=== PATIENT | male | born 1960 | race Caucasian/White ===

== ENCOUNTER 2020-09-01 09:58 | Outpatient (REF) | payer BC, SELFPAY ==
[2020-09-01 11:23] LABS: Alanine Aminotransferase 15 U/L (0-40); Albumin Level 4.4 g/dL (3.5-5.0); Alkaline Phosphatase 107 U/L (39-117); Anion Gap 13 (12-20); Aspartate Amino Transferase 18 U/L (5-37); Bilirubin Total 0.5 mg/dL (0.0-1.0); Blood Urea Nitrogen 17 mg/dL (9-16); Calcium 9.3 mg/dL (8.4-10.2); Carbon Dioxide 25 mmol/L (22-29); Chloride 104 mmol/L (96-108); Cholesterol 169 mg/dL; Estimated Glomerular Filt Rate > 60; Glucose Fasting 97 mg/dL (60-99); HDL Cholesterol 62 mg/dL; LDL Cholesterol Calculated 96 mg/dl; Potassium 4.4 mmol/l (3.3-5.1); Prostate Specific Antigen 2.14 ng/mL (<0.05-4.0); Sodium 138 mmol/L (135-145); TSH reflex Free T4 1.45 mIU/mL (0.32-4.0); Total Protein 7.3 g/dL (6.5-8.0); Triglycerides 56 mg/dL
[2020-09-01 12:14] LABS: Creatinine Urine 248.73 mg/dL; Microalbum/Creatinine Ratio Ur 8.4 ug/mg cr
== END 2020-09-01 09:59 | disposition home or self-care (01) ==
LOC: HO.LAB 09:58
PROVIDERS: PCP Family Medicine; Visit Provider Family Medicine
DX: Z00.00 Encounter for general adult medical examination without abnormal findings (principal); I10 Essential (primary) hypertension; E78.00 Pure hypercholesterolemia, unspecified; Z12.5 Encounter for screening for malignant neoplasm of prostate
CPT/HCPCS: 80053; 80061; 82043; 84153; 84443

== ENCOUNTER 2021-01-02 15:59 | Outpatient (REF) | payer BC, SELFPAY ==
[2021-01-02 18:13] LABS: MANUAL DIFF FLAG NO
[2021-01-02 18:24] LABS: Basophils Absolute Auto 0.1 X10*3/uL (0.0-0.2); Basophils Percent Auto 0.7 % (0-2); Eosinophils Absolute Auto 0.2 X10*3/uL (0.0-0.4); Eosinophils Percent Auto 2.6 % (0-4); Hematocrit 42.1 % (42-52); Hemoglobin 14.3 g/dl (14.0-18.0); Imm Gran Abs Auto 0.02 X10*3/uL (0.00-0.03); Imm Gran Pct Auto 0.3 % (0.0-0.4); Lymphocytes Absolute Auto 2.4 X10*3/uL (1.2-4.9); Lymphocytes Percent Auto 32.7 % (20-40); Mean Corpuscular Hemoglobin 30.8 pg (27.0-33.0); Mean Corpuscular Volume 90.5 fL (80-98); Mean Platelet Volume 9.8 fL (9.4-12.4); Monocytes Absolute Auto 0.5 X10*3/uL (0.1-1.2); Monocytes Percent Auto 7.2 % (2-11); Neutrophils Absolute Auto 4.1 X10*3/uL (2.0-8.3); Neutrophils Percent Auto 56.5 % (45-73); Platelet Count 272 X10*3/uL (160-400); Red Blood Count 4.65 X10*6/uL (4.60-5.80); Red Cell Distribution Width 13.4 % (11.0-16.0); White Blood Count 7.3 X10*3/uL (4.8-10.8)
[2021-01-02 18:37] LABS: Alanine Aminotransferase 20 U/L (0-40); Albumin Level 4.3 g/dL (3.5-5.0); Alkaline Phosphatase 88 U/L (39-117); Amylase 52 U/L (28-100); Anion Gap 12 (12-20); Aspartate Amino Transferase 26 U/L (5-37); Bilirubin Total 0.7 mg/dL (0.0-1.0); Blood Urea Nitrogen 24 mg/dL (9-16); Calcium 9.2 mg/dL (8.4-10.2); Carbon Dioxide 28 mmol/L (22-29); Chloride 105 mmol/L (96-108); Estimated Glomerular Filt Rate > 60; Glucose Random 82 mg/dL (60-115); Lipase 26 U/L (8-78); Potassium 4.4 mmol/L (3.3-5.1); Sodium 141 mmol/L (135-145); Total Protein 7.1 g/dL (6.5-8.0)
== END 2021-01-02 16:00 | disposition home or self-care (01) ==
LOC: HO.LAB 15:59
PROVIDERS: Absent Provider Family Medicine; PCP Family Medicine; Visit Provider Nurse Practitioner
DX: R10.13 Epigastric pain (principal); K21.9 Gastro-esophageal reflux disease without esophagitis; Z79.899 Other long term (current) drug therapy
CPT/HCPCS: 36415; 80053; 82150; 83690; 85025

== ENCOUNTER 2021-01-05 18:17 | Outpatient (REF) | payer BC, SELFPAY | END 2021-01-05 18:18 | disposition home or self-care (01) | LOC: HO.LNP 18:17 | PROVIDERS: Visit Provider Nurse Practitioner | DX: R10.13 Epigastric pain (principal); K21.9 Gastro-esophageal reflux disease without esophagitis | CPT/HCPCS: 87338 ==

== ENCOUNTER 2021-01-19 09:13 | Outpatient (REF) | payer BC, SELFPAY ==
--- NOTE | ~2021-01-19 | US_ITS ---
EXAMINATION: US ABDOMEN COMPLETE CLINICAL INFORMATION: GERD. Epigastric pain. COMPARISON: None TECHNIQUE: Real-time imaging of the abdominal viscera. FINDINGS: PANCREAS: The visualized head and body of the pancreas appears unremarkable. Remainder of the pancreas is obscured by bowel gas. ABDOMINAL AORTA: The proximal, mid, and distal segments are normal in caliber. INFERIOR VENA CAVA: Visualized portions are normal. LIVER: Normal. The liver is normal in size. The liver contour is normal. Parenchymal echogenicity is normal. No focal hepatic lesion. There is no intrahepatic biliary duct dilatation seen. GALLBLADDER: Normal. The gallbladder is physiologically distended without evidence of stones, sludge, polyps, wall thickening or pericholecystic fluid. COMMON BILE DUCT: Normal in caliber measuring 0.5 cm in diameter. RIGHT KIDNEY: Normal. No hydronephrosis. No renal calculi or focal parenchymal lesions. The kidney measures 11.2 cm in maximum dimension. LEFT KIDNEY: Normal. No hydronephrosis. No renal calculi or focal parenchymal lesions. The kidney measures 11.7 cm in maximum dimension. SPLEEN: Normal. The spleen measures 9.8 cm in maximum dimension. FREE FLUID: None. US/US abdomen complete IMPRESSION: Unremarkable abdominal ultrasound.
== END 2021-01-19 09:14 | disposition home or self-care (01) ==
LOC: HO.HMGCX 09:13
PROVIDERS: PCP Family Medicine; Visit Provider Nurse Practitioner
DX: K21.9 Gastro-esophageal reflux disease without esophagitis (principal); R10.13 Epigastric pain
CPT/HCPCS: 76700

== ENCOUNTER → 2021-01-25 15:25 | Outpatient (BNVA) | payer BC, SELFPAY | PROVIDERS: PCP Family Medicine; Visit Provider Nurse Practitioner ==

== ENCOUNTER 2021-02-22 09:03 | Day surgery (SDC) | payer BC, SELFPAY ==
[2021-02-15 12:32] VITALS: BMI 27.6
--- NOTE | 2021-02-20 14:40 | HO.ANESPROP2 ---
HPI - Anesthesia Eval Consult details Narrative: 60yo M for Upper Endoscopy Eliquis for afib [facility] Active Problems Active Problems: All Active Problems (Updated 02/15/21 @ 12:42 by Christiana Clark) Aftercare following left hip joint replacement surgery (Acute) Osteoarthritis of left hip (Acute) Chronic GERD (Acute) Gastritis (Acute) Essential hypertension (Acute) History of [place] (myocardial infarction) (Acute) History of CVA (cerebrovascular accident) (Acute) Epigastric pain (Acute) Past Medical History Medical History CAD (coronary artery disease) COVID-19 vaccine series completed CVA (cerebral vascular accident) GERD (gastroesophageal reflux disease) HTN (hypertension) Myocardial infarction On anticoagulant therapy On beta nettie at home Family History Family History Father CAD (coronary artery disease) Brother No problems noted. Brother No problems noted. Sister No problems noted. Sister No problems noted. Son No problems noted. Daughter No problems noted. Surgical History Surgical History History of hip surgery Hx of arthroscopy of left knee Hx of colonoscopy Hx of inguinal hernia repair S/P triple vessel bypass Social History Social History (Updated 01/25/21 @ 15:27 by Ana Payton [facility]) Household Members: Spouse Are you a primary child care specialist to a significant other at home: No Do you presently have visiting nurse or other home services: No Alcohol intake: current Alcohol intake frequency: a few times a week Patient Tobacco Use Status: Never used Tobacco Current occupational status: employed Current occupation: [employer] Meds Allergies Allergy/AdvReac Type Severity Reaction Status Date / Time No Known Allergies Allergy Verified 02/22/21 09:22 [No Known Allergies*] Home Medications Medication Instructions Recorded Confirmed Last Taken Type aspirin 81 mg tablet,delayed 81 mg PO DAILY 07/28/20 02/15/21 02/22/21 08:30 History release Exam Exam Date and Time: February 20, 2021 1440 Height,Weight and Vital Signs: Height 5 ft 7 in Weight 79.832 kg Pertinent Lab Results Pertinent Lab Results: Laboratory Tests 01/02/21 01/02/21 17:00 17:00 WBC 7.3 Hgb 14.3 Hct 42.1 Plt Count 272 Sodium 141 Potassium 4.4 Chloride 105 Carbon Dioxide 28 BUN 24 H Creatinine 0.78 Narrative Narrative: ECHO Nml LV size, wall thickness and systolic function Paradoxical septal motion c/w post-op status LVEF 55-60% Mild TR Pulm artery sytolic pressure not elevated Mild transverse aorta dialtion (3.1cm) EKG 2020 SB @ 53 with occ PVC Assessment and Plan Assessment Anesthesia Assessment: Chart Reviewed
--- NOTE | 2021-02-22 09:23 | MHC.SHP ---
Pre-Procedural Eval Section B Chief Complaint: Epigastric Pain Relevant Family History (Specify if Yes): No Relevant Social History: None Present Medications: see Short Stay Collaborative assessment Medical History: Significant History (CAD (coronary artery disease) COVID-19 vaccine series completed CVA (cerebral vascular accident) GERD (gastroesophageal reflux disease) HTN (hypertension) Myocardial infarction On anticoagulant therapy On beta nettie at home) History of Previous Operations: Relevant previous surgery/procedure and date(s) (History of hip surgery Hx of arthroscopy of left knee Hx of colonoscopy Hx of inguinal hernia repair S/P triple vessel bypass) Allergies: Allergies Allergy/AdvReac Type Severity Reaction Status Date / Time No Known Allergies Allergy Verified 02/22/21 09:22 [No Known Allergies*] Review of Systems Sugical H&P ROS: Negative: Constitution, Cardiovascular, Respiratory, Neurological, Psychiatric, Hem-Onc, Allergic/Immunologic, Gastrointestinal, Genitourinary, Musculoskeletal, Integumentary, Endocrine and Eyes/Ears/Nose/Throat Exam Surgical H&P Exam: Normal: HEENT, Normal: Heart, Normal: Lungs, Normal: Extremities, Normal: Abdomen, Normal: Skin and Normal: Neurological Plan Diagnosis/Plan: Unchanged I have reviewed the history and physical and performed a pertinent physical examination on my patient. No changes have occurred unless specified.
[2021-02-22 09:27] VITALS: BP 131/91; PULSE 53; RESP 18; TEMP 36.1; O2SAT 97
[2021-02-22] MEDS: Lactated Ringers 1,000 ML 100 ML IVCONT (09:42)
--- NOTE | 2021-02-22 10:18 | PM.OP ---
Brief Operative Note Date of Service: 02/22/21 Pre-op diagnosis: epigastric pain Post-op diagnosis: same Procedure: see op note Surgeon: Farzana Fatima MD Anesthesia: MAC Was an Programming Coordinator used for this Procedure?: No Estimated blood loss (mL): 0 Condition: stable Disposition: PACU
--- NOTE | 2021-02-22 10:19 | W.PM.OPN ---
Operative Note Operative Note Date of Service: 02/22/21 Narrative: Procedure Description: EGD FLEXIBLE TRANSORAL UPPER GASTROINTESTINAL ENDOSCOPY UPPER ENDOSCOPY Consent: Indications for the procedure and potential complications of bleeding, perforation, reaction to medications and missed diagnosis were discussed with the patient and informed consent was obtained. Instrument: Olympus GIF H 190 J mid size upper endoscope Monitoring: Vital signs and clinical assessment, continuous EKG monitoring, Pulse oximetry, Carbon Dioxide monitoring and blood pressure monitoring were done throughout the procedure. Procedure: The patient was placed in the left lateral decubitis position and pre-procedure medications were administered and a bite block was placed. The endoscope was inserted into the mouth and advanced under direct vision to the third part of duodenum. A careful inspection was made as the upper endoscope was withdrawn including a retroflexed examination of the proximal stomach; Findings and interventions are described below. Findings: Larynx:normal Esophagus: GE junction at 40 cm, diaphragm hiatus at 40 cm, irregular z line with few islands of salmon pink tissue compatible with short segment barretts mucosa, bx taken Stomach: Patchy gastric erythema. Biopsies were obtained. Grade 2 flap valve on retroflexed examination of the cardia. Duodenum: Normal bulb and descending duodenum, bx taken Intervention: Biopsies as noted above Impression/Findings: barretts by endoscopic examination gastritis PLAN: cont with PPI, maybe change preparation to pantoprazole if ongoing sx repeat EGD in 3-5 yrs for surveillance or earlier if clinically indicated
[2021-02-22 10:34] VITALS: BP 101/67; PULSE 57; RESP 12; TEMP 36.6; O2SAT 96
[2021-02-22 10:49] VITALS: BP 106/73; PULSE 55; RESP 16; O2SAT 96
== END 2021-02-22 11:25 | disposition home or self-care (01) ==
PROVIDERS: PCP Family Medicine; Visit Provider Internal Medicine Gastroenterology
PROC: 0DJ08ZZ Inspection of Upper Intestinal Tract, Via Natural or Artificial Opening Endoscopic (ICD-10-PCS; CPT 43235; principal; 2021-02-22 10:20)
DX: K29.50 Unspecified chronic gastritis without bleeding (principal); K22.70 Barrett's esophagus without dysplasia; K44.9 Diaphragmatic hernia without obstruction or gangrene; K21.9 Gastro-esophageal reflux disease without esophagitis; I10 Essential (primary) hypertension; I25.2 Old myocardial infarction; Z86.73 Personal history of transient ischemic attack (TIA), and cerebral infarction without residual deficits; Z79.01 Long term (current) use of anticoagulants; Z79.899 Other long term (current) drug therapy
CPT/HCPCS: 43239; 88305; 88342

== ENCOUNTER → 2021-03-20 14:12 | Outpatient (BNVA) | payer BC, SELFPAY | PROVIDERS: Visit Provider Nurse Practitioner ==

== ENCOUNTER 2021-08-18 08:05 | Outpatient (REF) | payer BC, SELFPAY ==
[2021-08-18 10:12] LABS: Alanine Aminotransferase 27 U/L (0-40); Albumin Level 4.3 g/dL (3.5-5.0); Alkaline Phosphatase 72 U/L (39-117); Anion Gap 14 (12-20); Aspartate Amino Transferase 28 U/L (5-37); Bilirubin Total 0.8 mg/dL (0.0-1.0); Blood Urea Nitrogen 19 mg/dL (9-16); Calcium 9.5 mg/dL (8.4-10.2); Carbon Dioxide 27 mmol/L (22-29); Chloride 105 mmol/L (96-108); Cholesterol 206 mg/dL; Estimated Glomerular Filt Rate > 60; Glucose Fasting 103 mg/dL (60-99); HDL Cholesterol 70 mg/dL; LDL Cholesterol Calculated 118 mg/dl; Potassium 4.9 mmol/L (3.3-5.1); Sodium 141 mmol/L (135-145); Total Protein 7.1 g/dL (6.5-8.0); Triglycerides 90 mg/dL
[2021-08-18 10:14] LABS: Prostate Specific Antigen Scr 1.07 ng/mL (<0.05-4.0); TSH reflex Free T4 1.45 uIU/mL (0.32-4.0)
== END 2021-08-18 08:06 | disposition home or self-care (01) ==
LOC: HO.LAB 08:05
PROVIDERS: PCP Family Medicine; Visit Provider Family Medicine
DX: Z00.00 Encounter for general adult medical examination without abnormal findings (principal); Z12.5 Encounter for screening for malignant neoplasm of prostate; I25.2 Old myocardial infarction; K21.9 Gastro-esophageal reflux disease without esophagitis
CPT/HCPCS: 36415; 80053; 80061; 84153; 84443

== ENCOUNTER 2021-08-27 08:42 | Day surgery (SDC) | payer BC, SELFPAY ==
[2021-08-21 10:45] VITALS: BMI 28.9
[2021-08-21 12:57] VITALS: BMI 28.9
--- NOTE | 2021-08-24 10:48 | HO.ANESPROP2 ---
Documented by User: Kayla Mcginnis NP 08/24/21 10:53 HPI - Anesthesia Eval Consult details Narrative: 61yo M for Colonoscopy with antibiotics Cardiac cleared s/p EGD 02/2021 with JAY Singleton for h/o stroke PMF[facility] Active Problems Active Problems: All Active Problems (Updated 08/21/21 @ 12:57 by Daphne Jones, RN) Aftercare following left hip joint replacement surgery (Acute) Osteoarthritis of left hip (Acute) Chronic GERD (Acute) Gastritis (Acute) Essential hypertension (Acute) History of [place] (myocardial infarction) (Acute) History of CVA (cerebrovascular accident) (Acute) Epigastric pain (Acute) Abdominal bloating (Acute) Annual visit for general adult medical examination without abnormal findings (Acute) Screening for prostate cancer (Acute) Screening for colon cancer (Acute) Hyperlipidemia (Acute) Past Medical History Medical History (Updated 08/21/21 @ 12:57 by Daphne Jones, RN) CAD (coronary artery disease) COVID-19 vaccine series completed CVA (cerebral vascular accident) Elevated cholesterol GERD (gastroesophageal reflux disease) HTN (hypertension) Myocardial infarction On anticoagulant therapy On beta nettie at home Family History Family History Father CAD (coronary artery disease) Brother No problems noted. Brother No problems noted. Sister No problems noted. Sister No problems noted. Son No problems noted. Daughter No problems noted. Surgical History Surgical History History of esophagogastroduodenoscopy (EGD) History of hip surgery Hx of arthroscopy of left knee Hx of colonoscopy Hx of inguinal hernia repair S/P triple vessel bypass Social History Social History Household Members: Spouse Are you a primary interior plant caretaker to a significant other at home: No Do you presently have visiting nurse or other home services: No Alcohol intake: current Alcohol intake frequency: holidays/special occasions only Patient Tobacco Use Status: Never used Tobacco Are you DNR?: No Advance Directives: No Advance Directives Information Provided: Yes Advance Directives on File: No Current occupational status: employed Current occupation: [employer] Meds Allergies Allergy/AdvReac Type Severity Reaction Status Date / Time No Known Allergies Allergy Verified 08/21/21 12:53 [No Known Allergies*] Home Medications Medication Instructions Recorded Confirmed Last Taken Type aspirin 81 mg tablet,delayed 81 mg PO DAILY 07/28/20 08/21/21 08/26/21 History release (Adult Aspirin Regimen) Exam Exam Date and Time: August 24, 2021 1048 Height,Weight and Vital Signs: Height 5 ft 6.5 in Weight 82.554 kg Pertinent Lab Results Pertinent Lab Results: Laboratory Tests 01/02/21 08/18/21 17:00 08:15 WBC 7.3 Hgb 14.3 Hct 42.1 Plt Count 272 Sodium 141 Potassium 4.9 Chloride 105 Carbon Dioxide 27 BUN 19 H Creatinine 0.82 Narrative Narrative: ECHO 2019 Nml LV size, wall thickness, systolic function. Paradoxical septal motion c/w postoperative status. LVEF 55-60% Mildly dilated LA Mild TR, PASP not elevated Mild transverse aorta dilation (3.1cm) No previous study for comparison Assessment and Plan Assessment Anesthesia Assessment: Chart Reviewed Documented by User: Augustin Bowen 08/27/21 12:04 HPI - Anesthesia Eval Consult details Narrative: 61yo M for Colonoscopy with antibiotics Cardiac cleared s/p EGD 02/2021 with MAC Eliquis for h/o stroke, also on BB , last dose in Am bradycardia , at baseline sp aCABG in 2018 . [facility] Past Medical History Medical History (Updated 08/21/21 @ 12:57 by Daphne Jones, RAMONA) CAD (coronary artery disease) COVID-19 vaccine series completed CVA (cerebral vascular accident) Elevated cholesterol GERD (gastroesophageal reflux disease) HTN (hypertension) Myocardial infarction On anticoagulant therapy On beta nettie at home Functional capacity: independent ambulation Family History Family History Father CAD (coronary artery disease) Brother No problems noted. Brother No problems noted. Sister No problems noted. Sister No problems noted. Son No problems noted. Daughter No problems noted. Family history of problems with anesthesia: No Surgical History Surgical History History of esophagogastroduodenoscopy (EGD) History of hip surgery Hx of arthroscopy of left knee Hx of colonoscopy Hx of inguinal hernia repair S/P triple vessel bypass History of Problems with Anesthesia: No Social History Social History Household Members: Spouse Are you a primary interior plant caretaker to a significant other at home: No Do you presently have visiting nurse or other home services: No Alcohol intake: current Alcohol intake frequency: holidays/special occasions only Patient Tobacco Use Status: Never used Tobacco Are you DNR?: No Advance Directives: No Advance Directives Information Provided: Yes Advance Directives on File: No Current occupational status: employed Current occupation: [employer] Allergies Allergy/AdvReac Type Severity Reaction Status Date / Time No Known Allergies Allergy Verified 08/21/21 12:53 [No Known Allergies*] Home Medications Medication Instructions Recorded Confirmed Last Taken Type aspirin 81 mg tablet,delayed 81 mg PO DAILY 07/28/20 08/21/21 08/26/21 History release (Adult Aspirin Regimen) Exam Airway Mallampati Class: I TM Dist: >3cm Neck ROM: Full Loose/Missing/Broken Teeth: No Heart: bradycardia Lungs: bl breath sounds Assessment and Plan Final Anesthetic Review Family History of Problems with Anesthesia: No History of Problems with Anesthesia: No NPO: Yes ASA Class: III Final Preanesthetic Review: Anes Risks/Benef Reviewed Patient Risk: Intermediate Procedure Risk: Intermediate Anesthetic Plan Anesthetic Plan: MAC: Disposition: Standard PACU
[2021-08-27 09:46] VITALS: BP 120/72; PULSE 45; RESP 16; TEMP 36.4; O2SAT 97
[2021-08-27] MEDS: Lactated Ringers 1,000 ML 50 ML IVCONT (09:59)
[2021-08-27] MEDS: Ampicillin Sodium 2 GM in 0.9 % Sodium Chloride 100 ML IV (09:59)
[2021-08-27] MEDS: Gentamicin Sulfate/NaCl 80 MG/100 ML PIGGYBACK 100 MG IV (10:55)
--- NOTE | 2021-08-27 12:30 | P.BOP_ITS ---
Brief Operative Note Date of Service: 08/27/21 Pre-op diagnosis: Screening Post-op diagnosis: other (Diverticulosis) Procedure: Colonoscopy to the cecum and TI Surgeon: Kenneth Zarate Anesthesia: MAC Was an Science Interpreter used for this Procedure?: No Estimated blood loss (mL): 0 Pathology: none sent Condition: stable Disposition: PACU
[2021-08-27 12:33] VITALS: BP 88/56; PULSE 47; RESP 13; TEMP 36.3; O2SAT 97
[2021-08-27 12:38] VITALS: BP 100/63; PULSE 40; RESP 16; O2SAT 94
--- NOTE | 2021-08-27 12:45 | OP_ITS ---
SURGEON: Kenneth Zarate MD INDICATIONS: The patient presents for evaluation of colorectal cancer screening and personal history of tubular adenoma of the colon. Full consent has been obtained from him for this, including risks of bleeding and perforation. PREOPERATIVE DIAGNOSIS: POSTOPERATIVE DIAGNOSIS: PROCEDURE PERFORMED: Colonoscopy to the cecum and terminal ileum. ESTIMATED BLOOD LOSS: COMPLICATIONS: ANESTHESIA: Monitored anesthesia care. ASSISTANTS: SPECIMENS: PREOPERATIVE DIAGNOSES: Personal history of tubular adenoma of the colon and colorectal cancer screening. POSTOPERATIVE DIAGNOSES: Personal history of tubular adenoma of the colon and colorectal cancer screening, diverticulosis and internal hemorrhoids. DESCRIPTION OF PROCEDURE: The patient was placed in the left lateral decubitus position. The digital rectal exam revealed no abnormalities. The Olympus video pediatric colonoscope was entered into the rectum and advanced easily to the cecum. Once in the cecum, I did identify normal-appearing cecal pouch with appendiceal orifice and a normal-appearing ileocecal valve. The terminal ileum was cannulated and appeared normal. The scope was withdrawn back in the colon. The entire cecum and ileocecal valve appeared normal. The scope was slowly withdrawn assessing all mucosal surfaces carefully. Preparation was excellent. I did not visualize any sign of polyps, colitis, nor angiodysplasia. There was a mild amount of sigmoid diverticulosis. In the rectum, scope was retroflexed visualizing internal hemorrhoids, but no other pathology. The rectal mucosa appeared normal. The scope was straightened out and withdrawn from the patient. He tolerated the procedure well and was returned to the recovery area in stable condition. IMPRESSION: 1. Mild sigmoid diverticulosis. 2. Small internal hemorrhoids. PLAN: Given his previous history of a tubular adenoma, I would recommend a followup colonoscopy in 5 years for further screening. He will otherwise see me on a p.r.n. basis. He was advised to resume his Eliquis and aspirin today. MD TIKI Katz/RICKIE / [phone]
[2021-08-27 12:53] VITALS: BP 105/68; PULSE 43; RESP 16; TEMP 36.6; O2SAT 95
[2021-08-27 13:02] VITALS: BP 111/71
== END 2021-08-27 13:54 | disposition home or self-care (01) ==
PROVIDERS: PCP Family Medicine; Visit Provider Internal Medicine
PROC: 0DJD8ZZ Inspection of Lower Intestinal Tract, Via Natural or Artificial Opening Endoscopic (ICD-10-PCS; CPT 45378; principal; 2021-08-27 10:20)
DX: Z12.11 Encounter for screening for malignant neoplasm of colon (principal); Z86.010 Personal history of colon polyps; K57.30 Diverticulosis of large intestine without perforation or abscess without bleeding; K64.8 Other hemorrhoids; I25.10 Atherosclerotic heart disease of native coronary artery without angina pectoris; Z95.1 Presence of aortocoronary bypass graft; I25.2 Old myocardial infarction; I48.91 Unspecified atrial fibrillation; I10 Essential (primary) hypertension; E78.5 Hyperlipidemia, unspecified; K21.9 Gastro-esophageal reflux disease without esophagitis; Z86.73 Personal history of transient ischemic attack (TIA), and cerebral infarction without residual deficits; Z79.82 Long term (current) use of aspirin; Z79.01 Long term (current) use of anticoagulants; Z79.02 Long term (current) use of antithrombotics/antiplatelets; Z79.899 Other long term (current) drug therapy
CPT/HCPCS: 45378; J0290; J1580

== ENCOUNTER 2022-01-02 10:42 | Outpatient (REF) | payer BC, SELFPAY ==
[2022-01-02 11:37] LABS: Influenza A PCR NEGATIVE (Negative); Influenza B PCR NEGATIVE (Negative); Resp Syncy Virus RNA Qual PCR NEGATIVE (Negative); SARS COV2 PCR INHOUSE POSITIVE (Negative)
== END 2022-01-02 10:43 | disposition home or self-care (01) ==
LOC: HO.LNP 10:42
PROVIDERS: Visit Provider Family Medicine
DX: B34.9 Viral infection, unspecified (principal); Z20.822 Contact with and (suspected) exposure to COVID-19
CPT/HCPCS: 0241U

== ENCOUNTER 2023-02-15 10:28 | Outpatient (REF) | payer BC, SELFPAY ==
[2023-02-15 10:43] LABS: MANUAL DIFF FLAG NO
[2023-02-15 10:48] LABS: Basophils Absolute Auto 0.1 X10*3/uL (0.0-0.2); Basophils Percent Auto 1.1 % (0-2); Eosinophils Absolute Auto 0.3 X10*3/uL (0.0-0.4); Hematocrit 44.2 % (42.0-52.0); Hemoglobin 15.2 g/dl (14.0-18.0); Imm Gran Abs Auto 0.01 X10*3/uL (0.00-0.03); Imm Gran Pct Auto 0.2 % (0.0-0.4); Lymphocytes Absolute Auto 2.1 X10*3/uL (1.2-4.9); Lymphocytes Percent Auto 38.5 % (20-40); Mean Corpuscular HGB Conc 34.4 g/dl (31.0-36.0); Mean Corpuscular Hemoglobin 31.5 pg (27.0-33.0); Mean Corpuscular Volume 91.5 fL (80.0-98.0); Mean Platelet Volume 9.7 fL (9.4-12.4); Monocytes Absolute Auto 0.4 X10*3/uL (0.1-1.2); Monocytes Percent Auto 6.7 % (2-11); Neutrophils Absolute Auto 2.6 x10*3/uL (2.0-8.3); Neutrophils Percent Auto 47.5 % (45-73); Platelet Count 242 X10*3/uL (160-400); Red Blood Count 4.83 X10*6/uL (4.60-5.80); Red Cell Distribution Width 12.9 % (11.0-16.0); White Blood Count 5.5 X10*3/uL (4.8-10.8)
[2023-02-15 11:12] LABS: Appearance Urine Clear; Color Urine Yellow; Glucose Urine UA Negative (Negative); Leukocyte Esterase Urine Negative (Negative); Nitrite Urine Negative (Negative); PH 6.5 (5.0-9.0); Specific Gravity - Urine 1.015 (1.005-1.025); Urine Blood Negative (Negative); Urine Ketones Negative (Negative); Urine Protein Negative (Neg-Trace)
[2023-02-15 11:26] LABS: Alanine Aminotransferase 34 U/L (0-40); Albumin Level 4.2 g/dL (3.5-5.0); Alkaline Phosphatase 72 U/L (39-117); Anion Gap 11 (12-20); Aspartate Amino Transferase 31 U/L (5-37); Bilirubin Total 0.8 mg/dL (0.0-1.0); Blood Urea Nitrogen 20 mg/dL (9-16); Calcium 9.4 mg/dL (8.4-10.2); Carbon Dioxide 26 mmol/L (22-29); Chloride 107 mmol/L (96-108); Cholesterol 205 mg/dL; Estimated Glomerular Filt Rate > 60; Glucose Fasting 99 mg/dL (60-99); HDL Cholesterol 63 mg/dL; LDL Cholesterol Calculated 129 mg/dl; Potassium 4.4 mmol/L (3.3-5.1); Sodium 140 mmol/L (135-145); Total Protein 7.1 g/dL (6.5-8.0); Triglycerides 69 mg/dL
[2023-02-15 11:43] LABS: Prostate Specific Antigen Scr 1.47 ng/mL (<0.05-4.0); TSH reflex Free T4 1.72 uIU/mL (0.32-4.0)
[2023-02-15 11:54] LABS: Creatinine Urine 54.48 mg/dL; Microalbumin Urine < 5.0 mg/L
== END 2023-02-15 10:29 | disposition home or self-care (01) ==
LOC: HO.LAB 10:28
PROVIDERS: PCP Family Medicine; Visit Provider Family Medicine
DX: Z00.00 Encounter for general adult medical examination without abnormal findings (principal); Z12.5 Encounter for screening for malignant neoplasm of prostate; I10 Essential (primary) hypertension
CPT/HCPCS: 36415; 80053; 80061; 81003; 82043; 84153; 84443; 85025

== ENCOUNTER 2023-03-26 06:04 | Outpatient (REF) | payer BC, SELFPAY ==
[2023-04-01 13:58] LABS: Testosterone, Free 132.4 pg/mL (35.0-155.0); Testosterone, Total 761 ng/dL (250-1100)
== END 2023-03-26 06:05 | disposition home or self-care (01) ==
LOC: HO.LAB 06:04
PROVIDERS: PCP Family Medicine; Visit Provider Urology
DX: N40.1 Benign prostatic hyperplasia with lower urinary tract symptoms (principal); Z12.5 Encounter for screening for malignant neoplasm of prostate
CPT/HCPCS: 36415; 84153; 84402; 84403

== ENCOUNTER 2023-05-28 14:28 | Outpatient (AMB) | payer BC, SELFPAY ==
[2023-05-28 14:33] VITALS: BP 122/72; PULSE 66; O2SAT 95; BMI 29.7
--- NOTE | 2023-05-28 14:33 | A.OFFPC_ITS ---
Vital Signs 05/28/23 14:33 Height 5 ft 7 in Weight 189 lb 6 oz BMI 29.7 BP 122/72 Blood Pressure Location Rt brachial Position Sitting Pulse 66 Pulse Source Pulse Oximeter Pulse Oximetry (%) 95 Oxygen Delivery Method Room Air Intake Visit Reasons: f/u hypertension and chronic conditions Intake Note: Patient is here to follow up on hypertension and chronic conditions. Allergies No Known Allergies [No Known Allergies*] Allergy (Verified 05/28/23 14:37) Tobacco use date assessed: 05/28/23 Dental Screening Did you have a dental visit in the last 12 months?: Yes Did you have a dental problem in the last 6 months where you did not have access to dental care?: No Was dental information given to patient?: Patient has dentist HPI f/u hypertension and chronic conditions HPI Details 62 y/o presents to f/u hypertension and chronic conditions. Blood pressure today 122/72. He is on metoprolol 25mg b.i.d. HPI Comments History of Present Illness Details Documentation assistance for Alexei Miranda MD, was provided by Bennie Abernathy,? Aeronautics Teacher on 05/28/2023 2:55 PM EST. I, Dr. Miranda, have read, observed, and verified documentation.? [facility] Medical History CAD (coronary artery disease) COVID-19 vaccine series completed CVA (cerebral vascular accident) Elevated cholesterol GERD (gastroesophageal reflux disease) HTN (hypertension) Myocardial infarction On anticoagulant therapy On beta nettie at home Surgical History History of esophagogastroduodenoscopy (EGD) History of hip surgery Hx of arthroscopy of left knee Hx of colonoscopy Hx of inguinal hernia repair S/P triple vessel bypass Family History Father CAD (coronary artery disease) Brother No problems noted. Brother No problems noted. Sister No problems noted. Sister No problems noted. Son No problems noted. Daughter No problems noted. Social History Household Members: Spouse Housing: House Are you a primary manager intensive care to a significant other at home: No Do you presently have visiting nurse or other home services: No Alcohol intake: current Alcohol intake frequency: holidays/special occasions only Patient Tobacco Use Status: Never used Tobacco e-Cigarette/Vaping Use: Never Used service: No Current occupational status: employed Current occupation: [employer] Cognitive needs: No Hearing needs: No Vision needs: No Questionnaire Thrive Questionnaire Date Thrive assessed: 02/19/23 CRISTHIAN-7 AMB Questionnaire CRISTHIAN-7 Date CRISTHIAN - 7 assessed: 02/19/23 Source: Developed by Drs. Kenneth Jeffrey, Tequila Renee, Blas Branch and colleagues, with an educational aicha from [employer]. Review of Systems Const Denies chills, Denies fatigue, Denies fever(s), Denies headache(s) and Denies we akness ENT Denies dizziness and Denies headache(s) Card Denies chest pain, Denies lightheadedness, Denies dyspnea and Denies other (Palpitations) Resp Denies cough, Denies dyspnea, Denies wheezing and Denies other ( shortness of breath) Musc Denies numbness and Denies tingling Neuro Denies dizziness, Denies headache(s), Denies numbness, Denies tingling, Denies paresthesias and Denies weakness Psych Denies anxiety and Denies depression Endo Denies fatigue Aller/Immun Denies wheezing Physical exam (Primary Care) Vital Signs: Last Vital Signs Pulse 66 05/28/23 14:33 BP 122/72 05/28/23 14:33 Pulse Ox 95 05/28/23 14:33 Oxygen Delivery Method Room Air 05/28/23 14:33 BMI result Body Mass Index 29.7 Tobacco/Smoking Status: Tobacco use Status Tobacco use date assessed 05/28/23 05/28/23 14:40 Patient Tobacco Use Status Never used Tobacco 05/28/23 14:36 e-Cigarette/Vaping Use Never Used 05/28/23 14:36 Thrive Assessment: Date of Thrive Assessment Date Thrive assessed 02/19/23 05/28/23 14:36 Const General: no acute distress and well developed Nutritional Appearance: well nourished Orientation/consciousness: patient oriented x3 HENMT Head: Yes normocephalic and Yes atraumatic Eyes General: appearance normal, both eyes and all related structures Pupils: Equal, round and reactive pupils present EOM: EOMs intact bilaterally Resp Effort & Inspection: normal respiratory effort Auscultation: clear to auscultation bilaterally Cardio Rate: regular rate Rhythm: regular rhythm Heart sounds: S1 normal heart sound present, S2 normal heart sound present, no gallops, no murmurs and no rubs Neuro General: patient oriented x3 and gait normal Cranial nerves: Yes Equal, round and reactive pupils present Psych Affect: normal affect Assessment and Plan Assessment & Plan (1) Essential hypertension: Code(s): I10 - Essential (primary) hypertension Plan: Blood pressure is controlled. Goal is less than 130/80 Continue current medication regimen (2) Hyperlipidemia: Code(s): E78.5 - Hyperlipidemia, unspecified Plan: LDL cholesterol 129 on atorvastatin 80 mg daily Had encouraged lifestyle changes He is exercising regular Will have him repeat lipids. If not significantly improved, we can discuss switching atorvastatin to Crestor and/or adding Zetia (3) CAD (coronary artery disease): Comment: Sees Dr. Andrea Flor [facility]- #[id number] Code(s): I25.10 - Atherosclerotic heart disease of [place] coronary artery without angina pectoris Plan: Stable Follow-up with Cardiology as recommended (4) History of CVA (cerebrovascular accident): Code(s): Z86.73 - Personal history of transient ischemic attack (TIA), and cerebral infarction without residual deficits Plan: Likely provoked but recommendation is to continue Eliquis lifelong Stable (5) Strain of left hamstring: Code(s): S76.312A - Strain of muscle, fascia and tendon of the posterior muscle group at thigh level, left thigh, initial encounter Plan: Recommend gentle stretching prior to exercise Orders: Orders Comprehensive [place]. Panel Fast Today E78.5 - Hyperlipidemia, unspecified, Z00.00 - Encounter for general adult medical examination without abnormal findings Lipid Panel Today E78.5 - Hyperlipidemia, unspecified, Z00.00 - Encounter for general adult medical examination without abnormal findings Coding Level of Care Code Est Pt Level 4 (78240) Diagnoses Essential hypertension I10 Hyperlipidemia E78.5 CAD (coronary artery disease) I25.10 History of CVA (cerebrovascular accident) Z86.73 Strain of left hamstring S76.312A
== END 2023-05-28 15:07 | disposition home or self-care (01) ==
PROVIDERS: PCP Family Medicine; Visit Provider Family Medicine
DX: I10 Essential (primary) hypertension (principal); E78.5 Hyperlipidemia, unspecified; I25.10 Atherosclerotic heart disease of native coronary artery without angina pectoris; Z86.73 Personal history of transient ischemic attack (TIA), and cerebral infarction without residual deficits; S76.312A Strain of muscle, fascia and tendon of the posterior muscle group at thigh level, left thigh, initial encounter
CPT/HCPCS: 99214

== ENCOUNTER 2023-06-21 07:02 | Outpatient (REF) | payer BC, SELFPAY ==
[2023-06-21 07:59] LABS: Alanine Aminotransferase 27 U/L (0-40); Albumin Level 4.3 g/dL (3.5-5.0); Alkaline Phosphatase 67 U/L (39-117); Anion Gap 17 (12-20); Aspartate Amino Transferase 29 U/L (5-37); Bilirubin Total 0.6 mg/dL (0.0-1.0); Blood Urea Nitrogen 17 mg/dL (9-16); Calcium 9.7 mg/dL (8.4-10.2); Carbon Dioxide 23 mmol/L (22-29); Chloride 107 mmol/L (96-108); Cholesterol 177 mg/dL (<200); Estimated Glomerular Filt Rate > 60; Glucose Fasting 102 mg/dL (60-99); HDL Cholesterol 60 mg/dL (>40); LDL Cholesterol Calculated 103 mg/dL (<100); Potassium 4.4 mmol/L (3.3-5.1); Sodium 143 mmol/L (135-145); Total Protein 7.2 g/dL (6.5-8.0); Triglycerides 70 mg/dL (<150)
[2023-06-21 08:21] LABS: Prostate Specific Antigen 1.57 ng/mL (<0.05-4.0)
== END 2023-06-21 07:03 | disposition home or self-care (01) ==
LOC: HO.LAB 07:02
PROVIDERS: Family Medicine; Visit Provider Physician Assistant
DX: Z00.00 Encounter for general adult medical examination without abnormal findings (principal); Z12.5 Encounter for screening for malignant neoplasm of prostate; R97.20 Elevated prostate specific antigen [PSA]; E78.5 Hyperlipidemia, unspecified
CPT/HCPCS: 36415; 80053; 80061; 84153

== ENCOUNTER 2023-07-02 16:24 | Outpatient (AMB) | payer BC, SELFPAY ==
--- NOTE | 2023-07-02 16:15 | A.OFFPC_ITS ---
Intake Visit Reasons: f/u labs Intake Note: Patient is following up on his blood work today. Allergies No Known Allergies [No Known Allergies*] Allergy (Verified 07/02/23 16:16) Tobacco use date assessed: 07/02/23 HPI f/u labs HPI Details 62 y/o male presents to f/u labs via tel emedicine. Labs were drawn 06/21/23. Reviewed labs with pt. Elevated fasting glucose of 102. Triglycerides 70. TC 177. LDL 103. HDL 60. He is on artovastatin 80mg daily. [facility] Medical History Elevated cholesterol COVID-19 vaccine series completed GERD (gastroesophageal reflux disease) CVA (cerebral vascular accident) On beta nettie at home On anticoagulant therapy Myocardial infarction CAD (coronary artery disease) HTN (hypertension) Surgical History History of esophagogastroduodenoscopy (EGD) Hx of arthroscopy of left knee Hx of colonoscopy Hx of inguinal hernia repair History of hip surgery S/P triple vessel bypass Family History Father CAD (coronary artery disease) Brother No problems noted. Brother No problems noted. Sister No problems noted. Sister No problems noted. Son No problems noted. Daughter No problems noted. Social History Household Members: Spouse Housing: House Are you a primary technical healthcare consultant to a significant other at home: No Do you presently have visiting nurse or other home services: No Alcohol intake: current Alcohol intake frequency: holidays/special occasions only Patient Tobacco Use Status: Never used Tobacco e-Cigarette/Vaping Use: Never Used service: No Current occupational status: employed Current occupation: [employer] Cognitive needs: No Hearing needs: No Vision needs: No Questionnaire Thrive Questionnaire Date Thrive assessed: 02/19/23 CRISTHIAN-7 AMB Questionnaire CRISTHIAN-7 Date CRISTHIAN - 7 assessed: 02/19/23 Source: Developed by Drs. Kenneth Jeffrey, Tequila Renee, Blas Branch and colleagues, with an educational aicha from [employer]. Review of Systems Const Denies chills, Denies fatigue, Denies fever(s), Denies headache(s) and Denies weakness ENT Denies dizziness and Denies headache(s) Card Denies dyspnea Resp Denies cough, Denies dyspnea, Denies wheezing and Denies other (shortness of breath) Musc Denies numbness and Denies tingling Neuro Denies dizziness, Denies headache(s), Denies numbness, Denies tingling and Denies weakness Psych Denies anxiety and Denies depression Endo Denies fatigue Aller/Immun Denies wheezing Physical exam (Primary Care) Tobacco/Smoking Status: Tobacco use Status Tobacco use date assessed 07/02/23 07/02/23 16:19 Patient Tobacco Use Status Never used Tobacco 07/02/23 16:19 e-Cigarette/Vaping Use Never Used 07/02/23 16:19 Thrive Assessment: Date of Thrive Assessment Date Thrive assessed 02/19/23 07/02/23 16:19 Telehealth Telehealth Location of provider rendering services: practice address Location of patient: address on file Patient Identification confirmed using: Name, : Yes Telehealth method: voice only Patient verbally consented to treatment: Yes Patient verbally consented to billing insurance company: Yes Minutes spent on Phone/Video with Pt.: 5 Assessment and Plan Assessment & Plan (1) Hyperlipidemia: Code(s): E78.5 - Hyperlipidemia, unspecified Plan: Patient?has?history?of?coronary?artery?disease?and?LDL?c holesterol?now?at?102?on?atorvastatin?80?mg?daily.??Goal?is?less?than?70 Will?switch?atorvastatin?to?rosuvastatin Continue?diet?low?in?saturated?fats?and?cholesterol (2) CAD (coronary artery disease): Comment: Sees Dr. Andrea Flor [facility] Card- #[id number] Code(s): I25.10 - Atherosclerotic heart disease of [place] coronary artery without angina pectoris Plan: Stable Medications: New rosuvastatin 40 mg PO DAILY 90 days 90 tabs 2RF Discontinued atorvastatin Discontinued Reason: Doctor's Order 80 mg PO DAILY 90 tabs 3RF Coding Level of Care Code Tele Est Pt Level 2 (50102) Diagnoses Hyperlipidemia E78.5 CAD (coronary artery disease) I25.10
== END 2023-07-02 17:00 | disposition home or self-care (01) ==
LOC: HO.HMGFM 16:24
PROVIDERS: PCP Family Medicine; Visit Provider Family Medicine
DX: E78.5 Hyperlipidemia, unspecified (principal); I25.10 Atherosclerotic heart disease of native coronary artery without angina pectoris
CPT/HCPCS: 99441

== ENCOUNTER 2023-09-02 16:22 | Outpatient (AMB) | payer BC, SELFPAY ==
[2023-09-02 16:29] VITALS: BP 122/78; PULSE 96; O2SAT 74; BMI 30.6
--- NOTE | 2023-09-02 16:29 | MHC.PC.OV ---
Vital Signs 09/02/23 16:29 Height 5 ft 7 in Weight 195 lb 8 oz BMI 30.6 BP 122/78 Blood Pressure Location Lt brachial Position Sitting Pulse 96 Pulse Source Pulse Oximeter Pulse Oximetry (%) 74 L Oxygen Delivery Method Room Air Intake Visit Reasons: f/u hyperlipidemia with coronary artery diseas Intake Note: Patient is here to follow up on hyperlipidemia and coronary artery disease. Allergies No Known Allergies [No Known Allergies*] Allergy (Verified 09/02/23 16:30) Tobacco use date assessed: 09/02/23 HPI f/u hyperlipidemia with coronary artery diseas HPI Details 63 y/o male presents to f/u HLD with CAD. Had changed artovastatin to Crestor. Labs did not seem to be done. 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 HPI Comments History of Present Illness Details Documentation assistance for Alexei Miranda MD, was provided by Bennie Abernathy, Health Sciences Department Chair on 09/02/2023 4:58 PM EST. I, Dr. Miranda, have read, observed, and verified documentation. [facility] Medical History Elevated cholesterol COVID-19 vaccine series completed GERD (gastroesophageal reflux disease) CVA (cerebral vascular accident) On beta nettie at home On anticoagulant therapy Myocardial infarction CAD (coronary artery disease) HTN (hypertension) Surgical History History of esophagogastroduodenoscopy (EGD) Hx of arthroscopy of left knee Hx of colonoscopy Hx of inguinal hernia repair History of hip surgery S/P triple vessel bypass Family History Father CAD (coronary artery disease) Brother No problems noted. Brother No problems noted. Sister No problems noted. Sister No problems noted. Son No problems noted. Daughter No problems noted. Social History Household Members: Spouse Housing: House Are you a primary medical care evaluation specialist to a significant other at home: No Do you presently have visiting nurse or other home services: No Alcohol intake: current Alcohol intake frequency: holidays/special occasions only Patient Tobacco Use Status: Never used Tobacco e-Cigarette/Vaping Use: Never Used service: No Current occupational status: employed Current occupation: [employer] Cognitive needs: No Hearing needs: No Vision needs: No Questionnaire Thrive Questionnaire Date Thrive assessed: 02/19/23 CRISTHIAN-7 AMB Questionnaire CRISTHIAN-7 Date CRISTHIAN - 7 assessed: 02/19/23 Source: Developed by Drs. Kenneth Jeffrey, Tequila Renee, Blas Branch and colleagues, with an educational aicha from [employer]. Review of Systems Const Denies chills, Denies fatigue, Denies fever(s), Denies headache(s) and Denies weakness ENT Denies dizziness and Denies headache(s) Card Denies dyspnea Resp Denies cough, Denies dyspnea, Denies wheezing and Denies other (shortness of breath) Musc Denies numbness and Denies tingling Neuro Denies dizziness, Denies headache(s), Denies numbness, Denies tingling and Denies weakness Psych Denies anxiety and Denies depression Endo Denies fatigue Aller/Immun Denies wheezing Physical exam (Primary Care) Vital Signs: Last Vital Signs Pulse 96 09/02/23 16:29 BP 122/78 09/02/23 16:29 Pulse Ox 74 L 09/02/23 16:29 Oxygen Delivery Method Room Air 09/02/23 16:29 BMI result Body Mass Index 30.6 Tobacco/Smoking Status: Tobacco use Status Tobacco use date assessed 09/02/23 09/02/23 16:38 Patient Tobacco Use Status Never used Tobacco 09/02/23 16:38 e-Cigarette/Vaping Use Never Used 09/02/23 16:38 Thrive Assessment: Date of Thrive Assessment Date Thrive assessed 02/19/23 09/02/23 16:38 Const General: well developed; No acute distress Nutritional Appearance: well nourished Orientation/consciousness: patient oriented x3 HENMT Head: Yes normocephalic and Yes atraumatic Eyes General: appearance normal, both eyes and all related structures Pupils: Equal, round and reactive pupils present EOM: EOMs intact bilaterally Resp Effort & Inspection: normal respiratory effort Neuro General: patient oriented x3 and gait normal Cranial nerves: Yes Equal, round and reactive pupils present Psych Affect: normal affect Assessment and Plan Assessment & Plan (1) Hyperlipidemia: Code(s): E78.5 - Hyperlipidemia, unspecified Plan: LDL?cholesterol?was?above?100.??Goal?is?less?than?70 He?had?been?started?on?rosuvastatin.??He?has?not?gotten?his?lipids?drawn?since?then He?will?get?his?labs?drawn?and?we?can?follow-up?in?about?2?weeks?by?telemedicine (2) CAD (coronary artery disease): Comment: Sees Dr. Andrea Flor [facility]- #[id number] Code(s): I25.10 - Atherosclerotic heart disease of [place] coronary artery without angina pectoris Plan: Stable.??Follow-up?with?Cardiology?as?recommended (3) Strain of left hamstring: Code(s): S76.312A - Strain of muscle, fascia and tendon of the posterior muscle group at thigh level, left thigh, initial encounter Plan: Encouraged?stretching?exercises (4) Arm pain: Code(s): M79.603 - Pain in arm, unspecified Plan: Likely?left?biceps?strain?and?partial?tear Encouraged?ice/heat.??Voltaren?gel Gentle?stretches?and?can?begin?exercising?when?improved. If?not?improving?will?refer?to?physical?therapy. Medications: New diclofenac sodium 1% (Voltaren Arthritis Pain) apply to single knee, ankle, foot; for foot includes sole/toes/top of foot 4 grams topical QID PRN 100 grams 1RF pain 30 days Coding Level of Care Code Est Pt Level 4 (00317) Diagnoses Hyperlipidemia E78.5 CAD (coronary artery disease) I25.10 Strain of left hamstring S76.312A Arm pain M79.603
== END 2023-09-02 17:20 | disposition home or self-care (01) ==
PROVIDERS: PCP Family Medicine; Visit Provider Family Medicine
DX: E78.5 Hyperlipidemia, unspecified (principal); I25.10 Atherosclerotic heart disease of native coronary artery without angina pectoris; S76.312A Strain of muscle, fascia and tendon of the posterior muscle group at thigh level, left thigh, initial encounter; M79.603 Pain in arm, unspecified
CPT/HCPCS: 99214

== ENCOUNTER 2023-09-06 07:35 | Outpatient (REF) | payer BC, SELFPAY ==
[2023-09-06 08:32] LABS: Cholesterol 172 mg/dL (<200); HDL Cholesterol 59 mg/dL (>40); LDL Cholesterol Calculated 99 mg/dL (<100); Triglycerides 73 mg/dL (<150)
== END 2023-09-06 07:36 | disposition home or self-care (01) ==
LOC: HO.LAB 07:35
PROVIDERS: Absent Provider Nurse Practitioner; PCP Family Medicine; Visit Provider Family Medicine
DX: I25.10 Atherosclerotic heart disease of native coronary artery without angina pectoris (principal)
CPT/HCPCS: 36415; 80061

== ENCOUNTER 2023-10-01 14:32 | Outpatient (AMB) | payer BC, SELFPAY ==
[2023-10-01 14:35] VITALS: BP 124/72; PULSE 59; O2SAT 95; BMI 30.9
--- NOTE | 2023-10-01 14:35 | MHC.PC.OV ---
Vital Signs 10/01/23 14:35 Height 5 ft 7 in Weight 197 lb BMI 30.9 BP 124/72 Blood Pressure Location Lt brachial Position Sitting Pulse 59 Pulse Source Pulse Oximeter Pulse Oximetry (%) 95 Oxygen Delivery Method Room Air Intake Visit Reasons: f/u HLD Intake Note: Patient is here to follow up on cholesterol. Allergies No Known Allergies [No Known Allergies*] Allergy (Verified 10/01/23 14:36) Tobacco use date assessed: 09/02/23 Dental Screening Dental Screen Date: 10/01/23 Did you have a dental visit in the last 12 months?: Yes Did you have a dental problem in the last 6 months where you did not have access to dental care?: No Was dental information given to patient?: Patient has dentist HPI f/u HLD HPI Details 63 y/o male presents to f/u HLD. Lipid panel drawn 09/06/23. Reviewed labs with pt. Triglycerides 73. TC 172. LDL 99. HDL 59. He is on rosuvastatin 40mg daily. [facility] Medical History Elevated cholesterol COVID-19 vaccine series completed GERD (gastroesophageal reflux disease) CVA (cerebral vascular accident) On beta nettie at home On anticoagulant therapy Myocardial infarction CAD (coronary artery disease) HTN (hypertension) Surgical History History of esophagogastroduodenoscopy (EGD) Hx of arthroscopy of left knee Hx of colonoscopy Hx of inguinal hernia repair History of hip surgery S/P triple vessel bypass Family History Father CAD (coronary artery disease) Brother No problems noted. Brother No problems noted. Sister No problems noted. Sister No problems noted. Son No problems noted. Daughter No problems noted. Social History Household Members: Spouse Housing: House Are you a primary care management specialist to a significant other at home: No Do you presently have visiting nurse or other home services: No Alcohol intake: current Alcohol intake frequency: holidays/special occasions only Patient Tobacco Use Status: Never used Tobacco e-Cigarette/Vaping Use: Never Used service: No Current occupational status: employed Current occupation: [employer] Cognitive needs: No Hearing needs: No Vision needs: No Questionnaire Thrive Questionnaire Date Thrive assessed: 02/19/23 CRISTHIAN-7 AMB Questionnaire CRISTHIAN-7 Date CRISTHIAN - 7 assessed: 02/19/23 Source: Developed by Drs. Kenneth Jeffrey, Tequila Renee, Blas Branch and colleagues, with an educational aicha from [employer]. Review of Systems Const Denies chills, Denies fatigue, Denies fever(s), Denies headache(s) and Denies weakness ENT Denies dizziness and Denies headache(s) Card Denies chest pain, Denies lightheadedness, Denies dyspnea and Denies other (Palpitations) Resp Denies cough, Denies dyspnea, Denies wheezing and Denies other ( shortness of breath) Musc Denies numbness and Denies tingling Neuro Denies dizziness, Denies headache(s), Denies numbness, Denies tingling, Denies paresthesias and Denies weakness Psych Denies anxiety and Denies depression Endo Denies fatigue Aller/Immun Denies wheezing Physical exam (Primary Care) Vital Signs: Last Vital Signs Pulse 59 10/01/23 14:35 BP 124/72 10/01/23 14:35 Pulse Ox 95 10/01/23 14:35 Oxygen Delivery Method Room Air 10/01/23 14:35 BMI result Body Mass Index 30.9 Tobacco/Smoking Status: Tobacco use Status Tobacco use date assessed 09/02/23 10/01/23 14:38 Patient Tobacco Use Status Never used Tobacco 10/01/23 14:38 e-Cigarette/Vaping Use Never Used 10/01/23 14:38 Thrive Assessment: Date of Thrive Assessment Date Thrive assessed 02/19/23 10/01/23 14:38 Const General: no acute distress and well developed Nutritional Appearance: well nourished Orientation/consciousness: patient oriented x3 HENMT Head: Yes normocephalic and Yes atraumatic Eyes General: appearance normal, both eyes and all related structures Pupils: Equal, round and reactive pupils present EOM: EOMs intact bilaterally Resp Effort & Inspection: normal respiratory effort Auscultation: clear to auscultation bilaterally Cardio Rate: regular rate Rhythm: regular rhythm Heart sounds: S1 normal heart sound present, S2 normal heart sound present, no gallops, no murmurs and no rubs Neuro General: patient oriented x3 and gait normal Cranial nerves: Yes Equal, round and reactive pupils present Psych Affect: normal affect Assessment and Plan Assessment & Plan (1) Hyperlipidemia: Code(s): E78.5 - Hyperlipidemia, unspecified Plan: Only?modest?improvement?with?change?from?atorvastatin?to?Crestor?and?LDL?cholesterol?is?still?above?goal?of?less?than?70 Will?add?Zetia?and?continue?Crestor. Follow-up?in?3?months Orders: Orders Lipid Panel Today E78.5 - Hyperlipidemia, unspecified, Z00.00 - Encounter for general adult medical examination without abnormal findings Comprehensive [place]. Panel Fast Today E78.5 - Hyperlipidemia, unspecified, Z00.00 - Encounter for general adult medical examination without abnormal findings Hemoglobin A1c Today R73.01 - Impaired fasting glucose Medications: New ezetimibe (Zetia) 10 mg PO DAILY 30 tabs 2RF 30 days Coding Level of Care Code Est Pt Level 3 (04630) Diagnoses Hyperlipidemia E78.5
== END 2023-10-01 15:12 | disposition home or self-care (01) ==
PROVIDERS: PCP Family Medicine; Visit Provider Family Medicine
DX: E78.5 Hyperlipidemia, unspecified (principal)
CPT/HCPCS: 99213

== ENCOUNTER 2023-12-27 08:13 | Outpatient (REF) | payer BC, SELFPAY ==
[2023-12-27 09:45] LABS: Estimated Average Glucose 123 mg/dL; Hemoglobin A1c % 5.9 % (<6.0)
[2023-12-27 10:08] LABS: Alanine Aminotransferase 23 U/L (0-40); Albumin Level 4.2 g/dL (3.5-5.0); Alkaline Phosphatase 72 U/L (39-117); Anion Gap 10 (12-20); Aspartate Amino Transferase 26 U/L (5-37); Bilirubin Total 0.9 mg/dL (0.0-1.0); Blood Urea Nitrogen 17 mg/dL (9-16); Calcium 9.2 mg/dL (8.4-10.2); Carbon Dioxide 26 mmol/L (22-29); Chloride 106 mmol/L (96-108); Cholesterol 162 mg/dL (<200); Estimated Glomerular Filt Rate > 60; Glucose Fasting 98 mg/dL (60-99); HDL Cholesterol 58 mg/dL (>40); LDL Cholesterol Calculated 92 mg/dL (<100); Potassium 4.3 mmol/L (3.3-5.1); Sodium 138 mmol/L (135-145); Triglycerides 62 mg/dL (<150)
== END 2023-12-27 08:14 | disposition home or self-care (01) ==
LOC: HO.LAB 08:13
PROVIDERS: PCP Family Medicine; Visit Provider Family Medicine
DX: Z00.00 Encounter for general adult medical examination without abnormal findings (principal); E78.5 Hyperlipidemia, unspecified; R73.01 Impaired fasting glucose; I25.10 Atherosclerotic heart disease of native coronary artery without angina pectoris
CPT/HCPCS: 36415; 80053; 80061; 83036

== ENCOUNTER 2023-12-31 14:24 | Outpatient (AMB) | payer BC, SELFPAY ==
[2023-12-31 14:32] VITALS: BP 124/62; PULSE 54; O2SAT 96; BMI 31.0
--- NOTE | 2023-12-31 14:32 | MHC.PC.OV ---
Vital Signs 12/31/23 14:32 Height 5 ft 7 in Weight 198 lb BMI 31.0 BP 124/62 Blood Pressure Location Lt brachial Position Sitting Pulse 54 Pulse Source Pulse Oximeter Pulse Oximetry (%) 96 Oxygen Delivery Method Room Air Intake Visit Reasons: f/u HLD Intake Note: Patient is here for follow up on his HLD. Allergies No Known Allergies [No Known Allergies*] Allergy (Verified 12/31/23 14:33) Medication List - Last Reconciled 12/31/23 by Alexei Miranda MD apixaban (Eliquis) 5 mg PO BID aspirin (Adult Aspirin Regimen) 81 mg PO DAILY diclofenac sodium 1% 4 grams topical QID PRN 30 days diclofenac sodium 1% (Voltaren Arthritis Pain) 4 grams topical QID PRN 30 days ezetimibe (Zetia) 10 mg PO DAILY 30 days metoprolol tartrate 25 mg PO BID omeprazole 20 mg PO DAILY rosuvastatin 40 mg PO DAILY 90 days sildenafil 100 mg PO DAILY PRN 90 days Tobacco use date assessed: 12/31/23 Dental Screening Dental Screen Date: 10/01/23 HPI f/u HLD HPI Details 63 y/o male presents to f/u D with hx of CAD and CVA. Had added zetia to his medication regimen last office visit in September and continued his rosuvastatin. Hx of elevated fasting blood sugars. Labs were drawn 12/27/23. Reviewed labs with pt. Triglycerides 62. TC 162. LDL 92. HDL 58. He states he is unsure what medications he should be taking. A1c in the pre-diabetes range- 5.9%. Blood pressure today 124/62. He is on metoprolol 25mg b.i.d. HPI Comments History of Present Illness Details Documentation assistance for Alexei Miranda MD, was provided by Bennie Abernathy,? Cushion Padder on 12/31/2023 3:01 PM EST. I, Dr. Miranda, have read, observed, and verified documentation. [facility] Medical History Elevated cholesterol COVID-19 vaccine series completed GERD (gastroesophageal reflux disease) CVA (cerebral vascular accident) On beta nettie at home On anticoagulant therapy Myocardial infarction CAD (coronary artery disease) HTN (hypertension) Surgical History History of esophagogastroduodenoscopy (EGD) Hx of arthroscopy of left knee Hx of colonoscopy Hx of inguinal hernia repair History of hip surgery S/P triple vessel bypass Family History Father CAD (coronary artery disease) Brother No problems noted. Brother No problems noted. Sister No problems noted. Sister No problems noted. Son No problems noted. Daughter No problems noted. Social History Household Members: Spouse Housing: House Are you a primary acute care certified nursing assistant to a significant other at home: No Do you presently have visiting nurse or other home services: No Alcohol intake: current Alcohol intake frequency: holidays/special occasions only Patient Tobacco Use Status: Never used Tobacco e-Cigarette/Vaping Use: Never Used service: No Current occupational status: employed Current occupation: [employer] Cognitive needs: No Hearing needs: No Vision needs: No Questionnaire Thrive Questionnaire Date Thrive assessed: 02/19/23 CRISTHIAN-7 AMB Questionnaire CRISTHIAN-7 Date CRISTHIAN - 7 assessed: 02/19/23 Source: Developed by Drs. Kenneth Jeffrey, Tequila Renee, Blas Branch and colleagues, with an educational aicha from [employer]. Physical exam (Primary Care) Vital Signs: Last Vital Signs Pulse 54 12/31/23 14:32 BP 124/62 12/31/23 14:32 Pulse Ox 96 12/31/23 14:32 Oxygen Delivery Method Room Air 12/31/23 14:32 BMI result Body Mass Index 31.0 Tobacco/Smoking Status: Tobacco use Status Tobacco use date assessed 12/31/23 12/31/23 14:37 Patient Tobacco Use Status Never used Tobacco 12/31/23 14:37 e-Cigarette/Vaping Use Never Used 12/31/23 14:37 Thrive Assessment: Date of Thrive Assessment Date Thrive assessed 02/19/23 12/31/23 14:37 Assessment and Plan Assessment & Plan (1) Hyperlipidemia: Code(s): E78.5 - Hyperlipidemia, unspecified Plan: Minimal?change?in?LDL?cholesterol?with?addition?of?Zetia?and?change?previously?from?atorvastatin?to?rosuvastatin.??Goal?is?less?than?70?for?patient?with?history?of?CVA?and?[place]. Patient?is?uncertain?about?what?medications?he?should?be?taking?so?it?is?unclear?if?he?has?been?consistent?with?these?medications. Wrote?these?down?for?him?and?I?have?encouraged?him?to?try?using?them?consistently Will?repeat?with?his?physical?labs?in?March (2) Essential hypertension: Code(s): I10 - Essential (primary) hypertension Plan: Blood?pressure?is?controlled.??Goal?is?less?than?130/80 Continue?current?medication (3) History of [place] (myocardial infarction): Code(s): I25.2 - Old myocardial infarction Plan: Encouraged?cholesterol?LDL?less?than?70 Continue?medications?as?above?and?work?at?a?diet?low?in?saturated?fats?and?cholesterol A1c?consistent?with?pre?diabetes?and?I?have?recommended?dietary?changes?and?weight?control?and?exercise (4) History of CVA (cerebrovascular accident): Code(s): Z86.73 - Personal history of transient ischemic attack (TIA), and cerebral infarction without residual deficits Plan: CVA?was?during?cardiac?surgery Nevertheless,?and?I?have?encouraged?a?LDL?cholesterol?less?than?70?and?good?blood?pressure?control Stable (5) Pre-diabetes: Code(s): R73.03 - Prediabetes Plan: A1c?in?pre?diabetes?range Encouraged?diet?lower?in?sugars?and?starches Encouraged?exercise?and?weight?control Medications: Changed From ezetimibe (Zetia) 10 mg PO DAILY 30 days 30 tabs 2RF To ezetimibe (Zetia) 10 mg PO DAILY 90 days 90 tabs 2RF Refilled rosuvastatin 40 mg PO DAILY 90 days 90 tabs 2RF Coding Level of Care Code Est Pt Level 4 (82383) Diagnoses Hyperlipidemia E78.5 Essential hypertension I10 History of [place] (myocardial infarction) I25.2 History of CVA (cerebrovascular accident) Z86.73 Pre-diabetes R73.03
== END 2023-12-31 15:25 | disposition home or self-care (01) ==
PROVIDERS: PCP Family Medicine; Visit Provider Family Medicine
DX: E78.5 Hyperlipidemia, unspecified (principal); I10 Essential (primary) hypertension; I25.2 Old myocardial infarction; Z86.73 Personal history of transient ischemic attack (TIA), and cerebral infarction without residual deficits; R73.03 Prediabetes
CPT/HCPCS: 99214

== ENCOUNTER 2024-02-13 14:55 | Outpatient (AMB) | payer BC, SELFPAY ==
[2024-02-13 15:34] VITALS: BP 126/74; PULSE 63; TEMP 36.6; O2SAT 96
--- NOTE | 2024-02-13 15:34 | MHC.OFFWIV ---
Intake Vital Signs 02/13/24 15:34 Height 5 ft 7 in BP 126/74 Blood Pressure Location Rt brachial Position Sitting Pulse 63 Pulse Source Pulse Oximeter Temp 97.9 F Temp Source Oral Pulse Oximetry (%) 96 Intake Visit Reasons: EP chest cold , wheezing Intake Note: pt is here for chest cold with wheezing Patient Tobacco Use Status: Never used Tobacco Allergies No Known Allergies [No Known Allergies*] Allergy (Verified 02/13/24 15:34) Do you need a note to return to daycare/school/sports/work: No HPI HPI Comments History of Present Illness Details 63 y/o male patient who presents to walk in clinic with c/o cough x 1.5 weeks. He has tried OTC remedies with no relief. Denies fevers, chills, nausea or vomiting. [facility] Medical History Elevated cholesterol COVID-19 vaccine series completed GERD (gastroesophageal reflux disease) CVA (cerebral vascular accident) On beta nettie at home On anticoagulant therapy Myocardial infarction CAD (coronary artery disease) HTN (hypertension) Surgical History History of esophagogastroduodenoscopy (EGD) Hx of arthroscopy of left knee Hx of colonoscopy Hx of inguinal hernia repair History of hip surgery S/P triple vessel bypass Family History Father CAD (coronary artery disease) Brother No problems noted. Brother No problems noted. Sister No problems noted. Sister No problems noted. Son No problems noted. Daughter No problems noted. Social History Household Members: Spouse Housing: House Are you a primary care companion to a significant other at home: No Do you presently have visiting nurse or other home services: No Alcohol intake: current Alcohol intake frequency: holidays/special occasions only Patient Tobacco Use Status: Never used Tobacco e-Cigarette/Vaping Use: Never Used service: No Current occupational status: employed Current occupation: [employer] Cognitive needs: No Hearing needs: No Vision needs: No Review of Systems Const All systems reviewed & are unremarkable except as noted in HPI and below Physical Exam Vital Signs: Last Vital Signs Temp 97.9 F 02/13/24 15:34 Pulse 63 02/13/24 15:34 BP 126/74 02/13/24 15:34 Pulse Ox 96 02/13/24 15:34 Const General: comfortable and no acute distress Orientation/consciousness: patient oriented x3 HEENT Head: Yes normocephalic Ears: external ears normal and TM's normal bilaterally General nose exam: Normal nasal mucous membranes and turbinates present Face and sinus: Yes sinuses nontender Mouth: moist mucous membranes Throat: Yes posterior oropharynx normal Resp Effort & Inspection: normal respiratory effort and able to speak in complete sentences Auscultation: clear to auscultation bilaterally, no crackles, no rales, no rhonchi and no wheezes Cardio Rate: regular rate Rhythm: regular rhythm Neuro General: patient oriented x3, gait normal and moves all extremities Psych Speech and movement: Normal speech and movement present Assessment & Plan Assessment & Plan (1) Cough in adult: Code(s): R05.9 - Cough, unspecified Plan: - Rest and hydrate with warm fluids - OTC cough medicine - Acetaminophen for pain relief. Medications: New azithromycin 500 mg PO DAILY 3 days 3 tabs 0RF cough R05.9 - Cough, unspecified cetirizine (Zyrtec) 10 mg PO DAILY PRN 60 tabs 0RF allergy symptoms R05.9 - Cough, unspecified Coding Level of Care Code Est Pt Level 3 (69307) Diagnoses Cough in adult R05.9 Time Spent (min) 15
== END 2024-02-13 16:07 | disposition home or self-care (01) ==
LOC: HO.HMGWI 14:55
PROVIDERS: PCP Family Medicine
DX: R05.9 Cough, unspecified (principal)
CPT/HCPCS: 99213

== ENCOUNTER 2024-04-16 07:31 | Outpatient (REF) | payer BC, SELFPAY ==
[2024-04-16 08:00] LABS: Appearance Urine Clear; Color Urine Yellow; Glucose Urine UA Negative (Negative); Leukocyte Esterase Urine Negative (Negative); Nitrite Urine Negative (Negative); PH 6.5 (5.0-9.0); Specific Gravity - Urine >= 1.030 (1.005-1.025); Urine Blood Negative (Negative); Urine Ketones Negative (Negative); Urine Protein Negative (Neg-Trace)
[2024-04-16 08:12] LABS: Estimated Average Glucose 117 mg/dL; Hemoglobin A1C 148.8337 umol/L; Hemoglobin A1c % 5.7 % (<6.0)
[2024-04-16 08:35] LABS: Creatinine Urine 207.51 mg/dL; Microalbum/Creatinine Ratio Ur 4.3 ug/mg cr (<30)
[2024-04-16 08:40] LABS: Alanine Aminotransferase 18 U/L (0-40); Albumin Level 4.1 g/dL (3.5-5.0); Alkaline Phosphatase 69 U/L (39-117); Anion Gap 12 (12-20); Aspartate Amino Transferase 21 U/L (5-37); Bilirubin Total 0.7 mg/dL (0.0-1.0); Blood Urea Nitrogen 21 mg/dL (9-16); Carbon Dioxide 24 mmol/L (22-29); Chloride 109 mmol/L (96-108); Cholesterol 153 mg/dL (<200); Estimated Glomerular Filt Rate > 60; Glucose Fasting 100 mg/dL (60-99); HDL Cholesterol 59 mg/dL (>40); LDL Cholesterol Calculated 83 mg/dL (<100); Potassium 4.2 mmol/L (3.3-5.1); Sodium 141 mmol/L (135-145); Triglycerides 59 mg/dL (<150)
[2024-04-16 08:56] LABS: TSH reflex Free T4 1.75 uIU/mL (0.32-4.0)
[2024-04-16 08:57] LABS: Prostate Specific Antigen Scr 1.97 ng/mL (<0.05-4.0)
== END 2024-04-16 07:32 | disposition home or self-care (01) ==
LOC: HO.LAB 07:31
PROVIDERS: PCP Family Medicine; Visit Provider Family Medicine
DX: Z00.00 Encounter for general adult medical examination without abnormal findings (principal); Z12.5 Encounter for screening for malignant neoplasm of prostate; R73.01 Impaired fasting glucose; E78.5 Hyperlipidemia, unspecified; I10 Essential (primary) hypertension
CPT/HCPCS: 36415; 80053; 80061; 81003; 82043; 82570; 83036; 84153; 84443

== ENCOUNTER → 2024-04-29 15:58 | Outpatient (AMB) | payer BC, SELFPAY ==
--- NOTE | 2024-04-29 16:23 | A.OFFPC_ITS ---
Vital Signs 04/29/24 16:31 Height 5 ft 7 in Weight 193 lb BMI 30.2 BP 100/70 Blood Pressure Location Rt brachial Position Sitting Respiration 12 Pulse 58 Pulse Source Pulse Oximeter Temp 98 F Temp Source Tympanic Pulse Oximetry (%) 96 Oxygen Delivery Method Room Air Intake Visit Reasons: CPE with f/u labs and health maint. 30 mins Intake Note: CPE f/u on labs Allergies No Known Allergies [No Known Allergies*] Allergy (Verified 04/29/24 16:29) Medication List - Last Reconciled 04/29/24 by Alexei Miranda MD apixaban (Eliquis) 5 mg PO BID aspirin (Adult Aspirin Regimen) 81 mg PO DAILY cetirizine 10 mg PO DAILY ezetimibe (Zetia) 10 mg PO DAILY 90 days metoprolol tartrate 25 mg PO BID omeprazole 20 mg PO DAILY rosuvastatin 40 mg PO DAILY 90 days sildenafil 100 mg PO DAILY PRN 90 days Tobacco use date assessed: 04/29/24 Dental Screening Dental Screen Date: 04/29/24 Did you have a dental visit in the last 12 months?: Yes Did you have a dental problem in the last 6 months where you did not have access to dental care?: Yes Was dental information given to patient?: Patient has dentist HPI CPE with f/u labs and health maint. 30 mins HPI Details 63 y/o male presents for a CPE with f/u labs and health maintenance. Labs drawn 04/16/24. Reviewed labs with pt. A1c 5.7%. Triglycerides 59. TC 153. LDL 83. HDL 59. He is on rosuvastatin 40mg daily. Hx of CAD. PSA level 1.97. Pt reports snoring while he is on his back. HPI Comments History of Present Illness Details Documentation assistance for Alexei Miranda MD, was provided by Bennie Abernathy, Finishing Area Operator on 04/29/2024 at 4:51 PM EST. I, Dr. Miranda, have read, observed, and verified documentation. [facility] Medical History Elevated cholesterol COVID-19 vaccine series completed GERD (gastroesophageal reflux disease) CVA (cerebral vascular accident) On beta nettie at home On anticoagulant therapy Myocardial infarction CAD (coronary artery disease) HTN (hypertension) Surgical History History of esophagogastroduodenoscopy (EGD) Hx of arthroscopy of left knee Hx of colonoscopy Hx of inguinal hernia repair History of hip surgery S/P triple vessel bypass Family History Father CAD (coronary artery disease) Brother No problems noted. Brother No problems noted. Sister No problems noted. Sister No problems noted. Son No problems noted. Daughter No problems noted. Social History (Updated 04/29/24 @ 16:28 by Omaira Tirado) Household Members: Spouse Housing: House Are you a primary career and technology education teacher to a significant other at home: No Do you presently have visiting nurse or other home services: No Alcohol intake: current Alcohol intake frequency: holidays/special occasions only Patient Tobacco Use Status: Never used Tobacco e-Cigarette/Vaping Use: Never Used Use of substances other than those prescribed or required for medical reasons: No service: No Current occupational status: employed Current occupation: [employer] Cognitive needs: No Hearing needs: No Vision needs: No Questionnaire PHQ-9 Over the last 2 weeks, how often have you been bothered by any of the following problems? 1. Little interest or pleasure in doing things: not at all 2. Feeling down, depressed, or hopeless: not at all 3. Trouble falling or staying asleep, or sleeping too much: not at all 4. Feeling tired or having little energy: not at all 5. Poor appetite or overeating: not at all 6. Feeling bad about yourself - or that you are a failure or have let yourself or your family down: not at all 7. Trouble concentrating on things, such as reading the newspaper or watching television: not at all 8. Moving or speaking so slowly that other people could have noticed. Or the opposite - being so fidgety or restless that you have been moving around a lot more than usual: not at all 9. Thoughts that you would be better off or of hurting yourself in some way: not at all Total score: 0 Depression Screening Interpretation: Negative Depression Screening Done: Yes 92485 - PHQ-9 Billing: Yes Source: Developed by Drs. Kenneth Jeffrey, TequilaBlas Perry and colleagues, with an educational aicha from [employer]. Thrive Questionnaire Date Thrive assessed: 04/29/24 I am a: Patient What is your living situation today?: I have a steady place to live Within the past 12 months, did the food you bought not last and you didn't have the money to get more?: Never true Within the past 12 months, did you worry whether your food would run out before you got money to buy more?: Never true Do you have trouble paying for medicines?: No Do you have trouble getting transportation to medical appointments?: No Do you have trouble paying your heating and electricity bill?: No Do you have trouble taking care of your child, family member or friend?: No Do you have trouble with day-to-day activities such as bathing, preparing meals, shopping, managing finances, etc.?: No Are you currently unemployed and looking for a job?: No Are you interested in more education?: No Please select the resources that you would like help with: None Currently or been in a relationship where the following occur: No concerns reported THRIVE Score: 0 AUDIT C Alcohol Use Questionnaire (AUDIT-C) 1. How often do you have a drink containing alcohol?: 2-4 times a month 2. How many drinks containing alcohol do you have on a typical day when you are drinking?: 1 or 2 3. How often do you have six or more drinks on one occasion?: Monthly Total Score: 4 Score Reviewed/Action Taken: Yes CRISTHIAN-7 AMB Questionnaire CRISTHIAN-7 Date CRISTHIAN - 7 assessed: 04/29/24 Feeling nervous, anxious, or on edge: 0 = Not at all Not being able to stop or control worryin = Not at all Worrying too much about different things: 0 = Not at all Trouble relaxin = Not at all Being so restless that it is hard to sit still: 0 = Not at all Becoming easily annoyed or irritable: 0 = Not at all Feeling afraid as if something awful might happen: 0 = Not at all Total CRISTHIAN-7 score (0-4 normal; 5-9 mild; 10-14 moderate; 15-21 severe): 0 Source: Developed by Tequila Munson Kurt Kroenke and colleagues, with an educational aicha from [employer]. CRISTHIAN-7 Assessment Billing CRISTHIAN-7 Assessment Tool: CRISTHIAN-7 Assessment 55650 Review of Systems Const Denies chills, Denies fatigue, Denies fever(s), Denies headache(s) and Denies weakness Eyes Denies change in vision ENT Denies dizziness, Denies headache(s), Denies hearing loss, Denies nasal congestion, Denies sinus pain, Denies sinus pressure and Denies sore throat Card Denies chest pain, Denies lightheadedness, Denies dyspnea and Denies other (palpitations) Resp Denies cough, Denies dyspnea and Denies wheezing GI Denies abdominal pain, Denies melena, Denies hematochezia, Denies change in bowel habits, Denies dyspepsia and Denies nausea Denies hematuria and Denies dysuria Musc Denies abnormal gait, Denies myalgias, Denies arthralgias, Denies numbness and Denies tingling Skin/Breast Denies rash, Denies unusual bruising and Denies wounds Neuro Denies abnormal gait, Denies dizziness, Denies headache(s), Denies memory loss, Denies numbness, Denies Sensory deficit (Neuro), Denies tingling and Denies weakness Psych Denies anxiety, Denies depression and Denies memory loss Endo Denies cold intolerance, Denies fatigue, Denies heat intolerance, Denies polydipsia and Denies polyuria Manpreet/Lymph Denies easy bleeding and Denies easy bruising Aller/Immun Denies wheezing Physical exam (Primary Care) Vital Signs: Last Vital Signs Temp 98 F 04/29/24 16:31 Pulse 58 04/29/24 16:31 Resp 12 04/29/24 16:31 BP 100/70 04/29/24 16:31 Pulse Ox 96 04/29/24 16:31 Oxygen Delivery Method Room Air 04/29/24 16:31 BMI result Body Mass Index 30.2 Tobacco/Smoking Status: Tobacco use Status Tobacco use date assessed 04/29/24 04/29/24 16:33 Patient Tobacco Use Status Never used Tobacco 04/29/24 16:28 e-Cigarette/Vaping Use Never Used 04/29/24 16:28 PHQ-9: PHQ-9 Score PHQ-9: Total score 0 04/29/24 16:33 Depression Screening Interpretation: Negative Thrive Assessment: Date of Thrive Assessment Date Thrive assessed 04/29/24 04/29/24 16:33 Currently or been in a relationship where the following occur: No concerns reported Const General: no acute distress, well developed, alert and awake Nutritional Appearance: well nourished Orientation/consciousness: patient oriented x3 [facility] Head: Yes normocephalic and Yes atraumatic Ears: hearing grossly normal bilaterally and TM's normal bilaterally General nose exam: Normal external nose present and Normal nares present Mouth: Normal oral and palatal mucosa present and moist mucous membranes Teeth and gingiva: dentition normal Throat: Yes posterior oropharynx normal Eyes General: appearance normal, both eyes and all related structures Pupils: Equal, round and reactive pupils present and Pupil accommodation reflex normal EOM: EOMs intact bilaterally Neck Neck: Yes normal visual inspection, Yes no lymphadenopathy and Yes trachea midline Thyroid: Thyroid normal Carotids: no bruits Lymphatic: no lymphadenopathy noted Chest Chest palpation & inspection: normal inspection of the chest Resp Effort & Inspection: normal respiratory effort Auscultation: clear to auscultation bilaterally Cardio Rate: regular rate Rhythm: regular rhythm Heart sounds: S1 normal heart sound present, S2 normal heart sound present, no gallops, no murmurs and no rubs Bruits: no abdominal aortic bruits and no carotid bruits GI Palpation (GI): No Abdominal aortic bruit present, Soft to palpation, nontender, No hepatosplenomegaly present and No Rebound tenderness present Auscultation: normal bowel sounds General: Yes no CVA tenderness Back/Spine/Pelvis Back: no CVA tenderness Cervical Spine: cervical ROM normal and No Cervical spine tenderness Thoracic/Lumbar Spine: thoraco-lumbar ROM normal, No pain with thoraco-lumbar ROM, No thoracic spinal tenderness and No lumbar spinal tenderness Skin Lesions: no lesions Rashes: no rashes Trauma: no lacerations or abrasions Wounds: no wounds Nails: normal Neuro General: patient oriented x3 Cranial nerves: Yes Equal, round and reactive pupils present Cognition (Neuro): normal cognition Gait exam (Neuro): Normal gait present Motor exam (neuro): 5/5 motor strength present throughout Sensory Exam: No Sensory deficit (Neuro) Deep tendon reflexes (DTR's): Right patellar reflex intensity grade: 2+ and Left patellar reflex intensity grade: 2+ Extrem General: Yes normal to inspection and No edema Psych Appearance: grossly normal Affect: normal affect Attitude: cooperative Thought process: Normal thought process present Assessment and Plan Assessment & Plan (1) Adult general medical examination: Code(s): Z00.00 - Encounter for general adult medical examination without abnormal findings Plan: 63-year-old?male?presents?for?complete?physical?exam Encouraged?healthy?diet?with?active?lifestyle?and?plenty?of?exercise (2) Pre-diabetes: Code(s): R73.03 - Prediabetes Plan: A1c?improved?to?5.7%. Encouraged?ongoing?diet?low?in?sugars?and?starches Encouraged?exercise Encouraged?weight?loss (3) Screening for prostate cancer: Code(s): Z12.5 - Encounter for screening for malignant neoplasm of prostate Plan: PSA?was?within?normal?range Urinating?normally Will?continue?annual?screen (4) Essential hypertension: Code(s): I10 - Essential (primary) hypertension Plan: Blood?pressure?is?controlled Goal?is?less?than?130/80 Continue?current?medications Hydrate?well (5) Hyperlipidemia: Code(s): E78.5 - Hyperlipidemia, unspecified Plan: LDL?cholesterol?is?83?which?is?improving?but?still?above?goal?of?less?than?70 He?is?maxed?out?on?rosuvastatin?and?Zetia Continue?medication He?can?try?taking?rosuvastatin?during?the?day?to?improve?compliance?further Work?at?diet?low?in?saturated?fats?and?cholesterol Encouraged?exercise?and?weight?loss Will?follow (6) CAD (coronary artery disease): Comment: Sees Dr. Andrea Flor [facility] Card- #[id number] Code(s): I25.10 - Atherosclerotic heart disease of [place] coronary artery without angina pectoris Plan: Maintain?good?blood?pressure?control,?lipids?and?blood?sugar Will?follow-up?on?these?at?his?next?visit (7) Screening for colon cancer: Code(s): Z12.11 - Encounter for screening for malignant neoplasm of colon Plan: Will?follow-up?on?this?at?his?next?visit (8) Snoring: Code(s): R06.83 - Snoring Plan: Patient?notes?some?snoring?when?sleeping?on?his?back?and?says?that?his??ofte n?checks?to?ensure?that?he?is?breathing. He?is?uncertain?if?she?notes?that?he?is?apneic He?will?discuss?with?her. I?will?refer?him?to?Sleep?Medicine?if?so Coding Level of Care Code Est Pt Level 3 (03059) Est Pt Prev Care 40-64y(19107) Diagnoses Adult general medical examination Z00.00 Pre-diabetes R73.03 Screening for prostate cancer Z12.5 Essential hypertension I10 Hyperlipidemia E78.5 CAD (coronary artery disease) I25.10 Screening for colon cancer Z12.11 Snoring R06.83 Additional Codes CRISTHIAN-7 Assessment Billing - CRISTHIAN-7 Assessment Tool: CRISTHIAN-7 Assessment [id number] ([id number])
[2024-04-29 16:31] VITALS: BP 100/70; PULSE 58; RESP 12; TEMP 36.6; O2SAT 96; BMI 30.2
== END ==
PROVIDERS: PCP Family Medicine; Visit Provider Family Medicine
DX: Z00.00 Encounter for general adult medical examination without abnormal findings (principal); R73.03 Prediabetes; Z12.5 Encounter for screening for malignant neoplasm of prostate; I10 Essential (primary) hypertension; E78.5 Hyperlipidemia, unspecified; I25.10 Atherosclerotic heart disease of native coronary artery without angina pectoris; Z12.11 Encounter for screening for malignant neoplasm of colon; R06.83 Snoring
CPT/HCPCS: 99213; 99396

== ENCOUNTER 2024-10-27 15:24 | Outpatient (REF) | payer BC, SELFPAY ==
[2024-10-28 11:50] LABS: Influenza A PCR NEGATIVE (Negative); Influenza B PCR NEGATIVE (Negative); Resp Syncy Virus RNA Qual PCR POSITIVE (Negative); SARS COV2 PCR INHOUSE NEGATIVE (Negative)
== END 2024-10-27 15:25 | disposition home or self-care (01) ==
LOC: HO.LAB 15:24
PROVIDERS: PCP Family Medicine; Visit Provider Physician Assistant
DX: J06.9 Acute upper respiratory infection, unspecified (principal)
CPT/HCPCS: 0241U

== ENCOUNTER 2024-11-03 14:20 | Outpatient (AMB) | payer BC, SELFPAY ==
--- NOTE | 2024-11-03 14:32 | MHC.PC.OV ---
Vital Signs 11/03/24 14:34 Height 5 ft 7 in Weight 193 lb BMI 30.2 BP 110/62 Blood Pressure Location Lt brachial Position Sitting Respiration 14 Pulse 54 Pulse Source Pulse Oximeter Temp 98.2 F Temp Source Oral Pulse Oximetry (%) 99 Oxygen Delivery Method Room Air Intake Visit Reasons: f/u HLD, HTN Intake Note: follow up for RSV symptoms pt was seen at walk in clinic in [place] and was dx with rsv Allergies No Known Allergies [No Known Allergies*] Allergy (Verified 11/03/24 14:33) Tobacco use date assessed: 04/29/24 Dental Screening Dental Screen Date: 04/29/24 HPI f/u HLD, HTN HPI Details Patient?was?scheduled?to?follow-up?hypertension?and?hyperlipidemia?but?has?not?gotten?his?labs?drawn?yet. He?will?like?to?discuss?his?recent?RSV?infection. Infection?was?over?a?week?ago. No?longer?feels?ill?but?still?has?a?cough PFSH Medical History Elevated cholesterol COVID-19 vaccine series completed GERD (gastroesophageal reflux disease) CVA (cerebral vascular accident) On beta nettie at home On anticoagulant therapy Myocardial infarction CAD (coronary artery disease) HTN (hypertension) Surgical History History of esophagogastroduodenoscopy (EGD) Hx of arthroscopy of left knee Hx of colonoscopy Hx of inguinal hernia repair History of hip surgery S/P triple vessel bypass Family History Father CAD (coronary artery disease) Brother No problems noted. Brother No problems noted. Sister No problems noted. Sister No problems noted. Son No problems noted. Daughter No problems noted. Social History (Updated 04/29/24 @ 16:28 by Omaira Tirado [facility] Household Members: Spouse Housing: House Are you a primary child adolescent care to a significant other at home: No Do you presently have visiting nurse or other home services: No Alcohol intake: current Alcohol intake frequency: holidays/special occasions only Patient Tobacco Use Status: Never used Tobacco e-Cigarette/Vaping Use: Never Used service: No Current occupational status: employed Current occupation: [employer] Cognitive needs: No Hearing needs: No Vision needs: No Questionnaire PHQ-9 Over the last 2 weeks, how often have you been bothered by any of the following problems? 1. Little interest or pleasure in doing things: not at all 2. Feeling down, depressed, or hopeless: not at all 3. Trouble falling or staying asleep, or sleeping too much: not at all 4. Feeling tired or having little energy: not at all 5. Poor appetite or overeating: not at all 6. Feeling bad about yourself - or that you are a failure or have let yourself or your family down: not at all 7. Trouble concentrating on things, such as reading the newspaper or watching television: not at all 8. Moving or speaking so slowly that other people could have noticed. Or the opposite - being so fidgety or restless that you have been moving around a lot more than usual: not at all 9. Thoughts that you would be better off or of hurting yourself in some way: not at all Total score: 0 Source: Developed by Drs. Kenneth Jeffrey, Tequila Renee, Blas Branch and colleagues, with an educational aicha from [employer]. Thrive Questionnaire Date Thrive assessed: 10/29/24 I am a: Patient What is your living situation today?: I have a steady place to live Within the past 12 months, did the food you bought not last and you didn't have the money to get more?: Never true Within the past 12 months, did you worry whether your food would run out before you got money to buy more?: Never true Do you have trouble paying for medicines?: No Do you have trouble getting transportation to medical appointments?: No Do you have trouble paying your heating and electricity bill?: No Do you have trouble taking care of your child, family member or friend?: No Do you have trouble with day-to-day activities such as bathing, preparing meals, shopping, managing finances, etc.?: No Are you currently unemployed and looking for a job?: No Are you interested in more education?: No Please select the resources that you would like help with: None Currently or been in a relationship where the following occur: No concerns reported THRIVE Score: 0 AUDIT C Alcohol Use Questionnaire (AUDIT-C) 1. How often do you have a drink containing alcohol?: Monthly or less 2. How many drinks containing alcohol do you have on a typical day when you are drinking?: 1 or 2 3. How often do you have six or more drinks on one occasion?: Less than monthly Total Score: 2 CRISTHIAN-7 AMB Questionnaire CRISTHIAN-7 Date CRISTHIAN - 7 assessed: 04/29/24 Feeling nervous, anxious, or on edge: 0 = Not at all Not being able to stop or control worryin = Not at all Worrying too much about different things: 0 = Not at all Trouble relaxin = Not at all Being so restless that it is hard to sit still: 0 = Not at all Becoming easily annoyed or irritable: 0 = Not at all Feeling afraid as if something awful might happen: 0 = Not at all Total CRISTHIAN-7 score (0-4 normal; 5-9 mild; 10-14 moderate; 15-21 severe): 0 Source: Developed by Drs. Kenneth Jeffrey, Tequila Renee, Blas Branch and colleagues, with an educational aicha from [employer]. Review of Systems Const Denies chills, Denies fatigue, Denies fever(s), Denies headache(s) and Denies weakness ENT Denies dizziness and Denies headache(s) Card Denies chest pain, Denies lightheadedness, Denies dyspnea and Denies other (Palpitations) Resp Details: Ongoing?cough Denies cough, Denies dyspnea, Denies wheezing and Denies other ( shortness of breath) Musc Denies numbness and Denies tingling Neuro Denies dizziness, Denies headache(s), Denies numbness, Denies tingling, Denies paresthesias and Denies weakness Psych Denies anxiety and Denies depression Endo Denies fatigue Aller/Immun Denies wheezing Physical exam (Primary Care) Vital Signs: Last Vital Signs Temp 98.2 F 11/03/24 14:34 Pulse 54 11/03/24 14:34 Resp 14 11/03/24 14:34 BP 110/62 11/03/24 14:34 Pulse Ox 99 11/03/24 14:34 Oxygen Delivery Method Room Air 11/03/24 14:34 BMI result Body Mass Index 30.2 Tobacco/Smoking Status: Tobacco use Status Tobacco use date assessed 04/29/24 11/03/24 14:38 Patient Tobacco Use Status Never used Tobacco 11/03/24 14:38 e-Cigarette/Vaping Use Never Used 11/03/24 14:38 PHQ-9: PHQ-9 Score PHQ-9: Total score 0 11/03/24 14:38 Thrive Assessment: Date of Thrive Assessment Date Thrive assessed 10/29/24 11/03/24 14:38 Currently or been in a relationship where the following occur: No concerns reported Const General: no acute distress and well developed Nutritional Appearance: well nourished Orientation/consciousness: patient oriented x3 [facility] Head: Yes normocephalic and Yes atraumatic Eyes General: appearance normal, both eyes and all related structures Pupils: Equal, round and reactive pupils present EOM: EOMs intact bilaterally Resp Other: Coarse?breath?sounds?but?otherwise?clear?to?auscultation?bilaterally Effort & Inspection: normal respiratory effort Cardio Rate: regular rate Rhythm: regular rhythm Heart sounds: S1 normal heart sound present, S2 normal heart sound present, no gallops, no murmurs and no rubs Neuro General: patient oriented x3 and gait normal Cranial nerves: Yes Equal, round and reactive pupils present Psych Affect: normal affect Coding Level of Care Code Est Pt Level 3 (05571) Diagnoses RSV infection B33.8 Assessment & Plan Assessment & Plan (1) RSV infection: Code(s): B33.8 - Other specified viral diseases Category: Medical Plan: Recent?RSV?infection Already?improving?though?still?has?a?cough Who?can?treat?cough?with?OTC?medications?and?also?Tylenol Also?advised?good?hydration?rest?and?humidified?air Given?patient's?history?of?coronary?artery?disease,?I?recommend?he?get?RSV?immunization?when?he?is?feeling?better.
[2024-11-03 14:34] VITALS: BP 110/62; PULSE 54; RESP 14; TEMP 36.8; O2SAT 99; BMI 30.2
--- OUTSIDE RECORDS SUMMARY | 2024-11-03 15:38 | XMS_ITS | Data Portability ---
Author Organization [facility], OFFICE Address [address], [facility] [address] [place] [address] Assessment Encounter Date Assessment Date Assessment LastModified by Organization Details LastModified Time 10/13/2019 10/13/2019 We discussed the options related to his treatment. Mr. Baum has advanced OA with complete loss of the cartilage space interval, asphericity, subchondral sclerosis and cyst formation. Left total hip arthroplasty is clearly the most reasonable treatment alternative at whatever point his bulb inspector feels that it is reasonable which may be a year from 06/19/19. We discussed the issues related to total hip arthroplasty in a lot of detail today including the preoperative process, the operative techniques, less invasive techniques, computer-assiste d techniques, the types of implants, the types of bearings, and the perioperative risks. In addition, we discussed the typical course following surgery and reasonable expectations for recovery, outcome, activity level, and long-term followup. We'll determine further treatment when additional information is obtained. sbm Not available 10/13/2019 18:18:30 08/21/2020 08/21/2020 Mr. Jaramillo has been recovering well following elective LTHR. He developed some thigh pain today in association with increased activity. I've recommended that he temper the rigor of his activities to limit any discomfort. Beyond that, he can progress to all reasonable activities provided that he isn't having pain or a limp. This visit was conducted as a real-time telehealth interactive video visit during this the national emergency and ongoing COVID-19 pandemic. He was identified and consented to this telehealth visit. He was at his home and I was at my home office. I spent a total of 10 minutes during this encounter. Greater than 50% of the time was devoted to counseling and coordinating care. This included reviewing records and pertinent studies, discussing diagnostic evaluation and workup, planning therapeutic interventions, and formulating the future disposition of care. sbm Not available 08/21/2020 18:03:03 Plan of Treatment Reminders Order Date Submit Date Provider Last Modified By Organization Details Last Modified Time Details Appointments None record ed. Lab None record ed. Referral None record ed. Procedures None record ed. Surgeries None record ed. Imaging None record ed. Medication Orders None record ed. Patient TargetsNo targets recorded. Patient InstructionsNo instructions recorded. Reason for Referral None Reported. Procedures Surgical History Date Name Laterality Status Provider Name and Address Organization Details Recorded Time 9 coronary artery bypass grafts x 3 completed Yair Godoy MD [address], [place], [address], [place] - [facility] 10/13/2019 18:00:02 total replacement of left hip joint completed Yair Godoy MD [address], [place], [address], [place] - [facility] 08/21/2020 18:00:53 Imaging Results None recorded. Procedure Notes None recorded. Medical Equipment None Reported. Allergies No known drug allergies Medications Name Sig Start Date Stop Date Status Note LastModified by Organization Details LastModified Time eliquis 5 mg tabs active Not Available Not Available Not Available metoprolol tartrate 25 mg tabs active Not Available Not Available Not Available atorvastatin calcium 80 mg tabs active Not Available Not Available Not Available sildenafil citrate 100 mg tabs active Not Available Not Available Not Available amiodarone hcl 200 mg tabs active Not Available Not Available Not Available pantoprazole sodium 40 mg tbec active Not Available Not Available Not Available furosemide 20 mg tabs active Not Available Not Available N ot Available clopidogrel 75 mg tabs active Not Available Not Available N ot Available santyl 250 unit/gm oint active Not Available Not Available Not Available losartan potassium 50 mg tabs active Not Available Not Available Not Available atorvastatin calcium 10 mg tabs active Not Available Not Available Not Available atorvastatin 80 mg tablet active Not Available Not Available Not Available aspirin 81 mg tablet,delay ed release TAKE 1 TABLET BY MOUTH EVERY DAY active Not Available Not Available No t Available sildenafil 100 mg tablet active Not Available Not Available Not Available cephalexin 500 mg capsule TAKE 1 CAPSULE BY MOUTH EVERY 12 HOURS FOR 10 DAYS active Not Available Not Available Not Available metoprolol tartrate 50 mg tablet active Not Available Not Available No t Available mupirocin 2 % topical ointment active Not Available Not Available Not Available oxycodone 5 mg tablet TAKE 1 2 TABLETS BY MOUTH EVERY 4 HOURS NEEDED FOR POST OP PAIN. TAPER OFF TO DISCONTINUE active Not Available Not Available Not Available metoprolol tartrate 25 mg tablet active Not Available Not Available No t Available Eliquis 5 mg tablet active Not Available Not Available Not Available Eliquis 2.5 mg tablet active Not Available Not Available No t Available Fluzone Quad (PF) 60 mcg (15 mcg x 4)/0.5 mL IM syringe PHARMACY ADMINISTERE D active Not Available Not Available No t Available Vitals Date Recorded Body height Body mass index (BMI) Body weight Systolic blood pressure Diastolic blood pressure Provider Name and Address Organization Details Last Updated DateTime 10/13/2019 170.18 cm 27.4 kg/m2 91318.66 g 115 mm[Hg] 80 mm[Hg] Hina Maxwell [place] - [facility] 0 12:29:45 Social History Question Answer Notes LastModified by Organizat ion Details LastModified Time Tobacco Smoking Status Never Smoker Hina Maxwell null, [place] - [facility] 10/13/2019 12:29:32 Do You Or Have You Ever Used E-cigarettes Or Vape? Never Used Electronic Cigarettes [email or web address] Information not available 10/13/2019 What Was The Date Of Your Most Recent Tobacco Screening? 10/13/2019 [email or web address] Information not available 10/13/2019 Do You Or Have You Ever Used Smokeless Tobacco? Never Used Smokeless Tobacco [email or web address] Information not available 10/13/2019 How Much Tobacco Do You Smoke? No [email or web address] Information not available 10/13/2019 How Many Years Have You Smoked Tobacco? 0 [email or web address] Information not available 10/13/2019 Sex: Unknown Functional Status None recorded. Mental Status None recorded. Family History Relationship Description Onset Age of this Age Resolved Age Notes LastModified by Organization Details LastModified Time Father Myocardial infarction sbm Not available 10/13 17:58:43 Mother Coronary artery bypass graft sbm Not available 17:58:56 Medical History Condition Response Stroke Y Hypertension Y High Cholesterol Y Past Encounters Encounter ID Performer Location Encounter Start Date Encounter Closed Date Diagnosis/Indication Diagnosis SNOMED-CT Code Diagnosis ICD10 Code Diagnosis Note [id number] Yair Godoy MD OFFICE [address], [address] [place] [address] 10/13/2019 11:38:42 10/18/2019 20:32:37 [id number] Yair Godoy MD [facility] [address] [place] [address] 08/21/2020 12:17:40 08/21/2020 18:29:28 Health Concerns Section Related Observation LastModified by Organization Detai ls LastModified Time None Recorded Concern Status LastModified by Organization Details LastModified Time None Recorded Advance Directives Directive None Recorded Payers Encounter Date Sequence Insurance Name Policy Number Policy Leone Covered Member ID Leone Member ID Guarantor Name 10/13/2019 1 [place] [id number] Julio Cesar Jaramillo [id number] Julio Cesar Jaramillo 08/21/2020 1 [place] [id number] Julio Cesar Jaramillo [id number] Julio Cesar Jaramillo Notes Date Note Type Note Provider Name and Address Organization Details Recorded Time 10/13/2019 text/html Hip(s) AthenaReported bypatient.Location:l eft; thigh Duration:2 years Alleviating Factors:rest Aggravating Factors:walking; exercise; going from sit to stand Associated Symptoms:no weakness; no numbness; no tingling; no swelling; no redness; no warmth; no ecchymosis; no catching/locking; no popping/clicking; no buckling; no grinding; no instability; no radiation down leg; no drainage; no fever; no chills; no weight loss; no change in bowel/bladder habits Prior Imaging:x ray Previous PT:did not help Yair Godoy MD [address], [place], [address], [place] - [facility] 10/13/2019 18:18:33 08/21/2020 text/html Hip(s) AthenaReported bypatient.Location:l eft; thigh Severity:mild Alleviating Factors:rest; stretching Aggravating Factors:exercise Associated Symptoms:no weakness; no numbness; no tingling; no swelling; no redness; no warmth; no ecchymosis; no catching/locking; no popping/clicking; no buckling; no grinding; no instability; no radiation down leg; no drainage; no fever; no chills; no weight loss; no change in bowel/bladder habits Prior Imaging:x ray; CT scan Previous PT:helped significantly Yair Godoy MD [address] [place] [address],[facility] [address], [place], [address], [place] - [facility] 08/21/2020 18:03:07
--- OUTSIDE RECORDS SUMMARY | 2024-11-03 15:38 | XMS_ITS | Encounter Summary ---
Author Organization [facility] Address [address] [place] [address] Care Team Providers Care Insurance Consultant Name Role Phone Alexei Miranda MD Primary Care Provider Reason for Visit * Reason Onset Date Comments Appointment 11/03/2024 Encounter Details Date Type Department Care Team (Late st Contact Info) Description 11/03/2024 Telephone [facility] [address] [facility] [address] [place] [address] Amalia Gallo NP [address] [place] [address] [address] [place] [address] Appointment Social History Tobacco Use Types Packs/Day Years Used Date Smoking Tobacco: Never Smokeless Tobacco: Never Alcohol Use Standard Drinks/Week Comments Yes 0 (1 standard drink = 0.6 oz pur e alcohol) Sex and Gender Information Value Date Recorded Sex Assigned at Not on file Legal Sex Male 11:59 AM EST Gender Identity Not on file Sexual Orientation Not on file documented as of this encounter Progress Notes * Tam Khan - 11/03/2024 3:22 PM EST Appointment booked with patient and reminder letter sent. * Yomaira Gamble - 11/03/2024 2:31 PM EST Left message for patient to call back to schedule overdue follow up with Amalia Gallo. Thank you. documented in this encounter Plan of Treatment Upcoming Encounters Date Type Department Care Team (Late st Contact Info) Description 12/08/2024 2:40 PM EDT Office Visit [facility] Cardiology [facility] [address] [place] [address] [address] [place] [address] Amalia Gallo, BLESSING [address] [place] [address] [address] [place] [address] documented as of this encounter Visit Diagnoses Not on filedocumented in this encounter Care Teams Insurance Consultant Relationship Specialty Start Date End Date Alexei Miranda MD [address] [place] [address] [address] [place], [place] PCP - General 08/02/19 documented as of this encounter
--- OUTSIDE RECORDS SUMMARY | 2024-11-03 15:38 | XMS_ITS | Clinical Summary ---
Author Organization [facility] ity Address [address] [place] [address] Care Team Providers Care Importer Or Exporter Name Role Phone Alexei Miranda MD Primary Care Provider Medications aspirin 81 mg EC tablet TAKE 1 TABLET BY MOUTH EVERY DAY 90 tablet 2 09/23/2024 Active Encounters Date Type Department Care Team Description 11/03/2024 Telephone [facility] Cardiology Associates [facility] [address] [facility] [address] [place] [address] Amalia Gallo NP Appointment from Last 3 Months Surgical History Surgery Date Site/Laterality Comments CORONARY ARTERY BYPASS GRAFT PROCEDURE: HISTORICAL CABG Medical History Medical History Date Comments Chronic ischemic heart disease D X:Chronic ischemic heart disease Hyperlipidemia DX:Hyperlipidemi a Family History Medical History Relation Name Comments Coronary artery disease Father Heart attack Father Other: lung issues Mother Relation Name Status Comments Father Mother Sister Alive Social History Tobacco Use Types Packs/Day Years Used Date Smoking Tobacco: Never Smokeless Tobacco: Never Alcohol Use Standard Drinks/Week Comments Yes 0 (1 standard drink = 0.6 oz pur e alcohol) Sex and Gender Information Value Date Recorded Sex Assigned at Not on file Legal Sex Male 11:59 AM EST Gender Identity Not on file Sexual Orientation Not on file Obstetrics History Last Filed Vital Signs Vital Sign Reading Time Taken Comments Blood Pressure 128/82 08/26/2023 2:40 PM EST Sitting L Arm Pulse 60 08/26/2023 2:40 PM EST Temperature - - Respiratory Rate - - Oxygen Saturation - - Inhaled Oxygen Concentration - - Weight 87.7 kg (193 lb 4.8 oz) 08/26/2023 2:40 PM EST Height 170.2 cm (5' 7 ) 08/26/2023 2:40 PM EST Body Mass Index 30.27 08/26/2023 2:40 PM EST Plan of Treatment Upcoming Encounters Date Type Department Care Team (Late st Contact Info) Description 12/08/2024 2:40 PM EDT Office Visit [facility] Cardiology [facility] [address] [place] [address] Amalia Gallo NP [address] [place] [address] [address] [place] [address] Health Maintenance Due Date Last Done Comments DTaP,Tdap,and Td Vaccines (1 - Tdap) 1979 Pneumococcal Vaccine: 50+ Ye ars (1 of 1 - PCV) 2010 Zoster Vaccines (1 of 2) 2010 RSV Immunization Patients 60 + Years Old (1 - Risk 60-74 years 1-dose series) 2020 Cholesterol Screening (Lipid Panel) 08/20/2022 Colorectal Cancer Screening: Colonoscopy 08/20/2022 Depression Screening 08/20/2022 HIV Screening 08/20/2022 Hepatitis C Screening 08/20/2022 Social Influencers of Health Screening 08/20/2022 Hypertension/CHF/CAD Annual BMP Blood Test 09/06/2022 COVID-19 Vaccine ( - 2023-2 5 season) 2024 Influenza Vaccine (#1) 2024 HIB Vaccines Aged Out No longer eligi ble based on patient's age to complete this topic HPV Vaccines Aged Out No longer eligi ble based on patient's age to complete this topic Hepatitis A Vaccines Aged Out No long er eligible based on patient's age to complete this topic Hepatitis B Vaccines Aged Out No long er eligible based on patient's age to complete this topic IPV Vaccines Aged Out No longer eligi ble based on patient's age to complete this topic MMR Vaccines Aged Out No longer eligi ble based on patient's age to complete this topic Meningococcal ACWY Vaccine Aged Out N o longer eligible based on patient's age to complete this topic Meningococcal B Vacine Aged Out No lo nger eligible based on patient's age to complete this topic Pneumococcal Vaccine: Pediat rics (0 to 5 Years) and At-Risk Patients (6 to 64 Years) Aged Out No longer eligible b ased on patient's age to complete this topic RSV Immunization Patients Un issac 20 months Aged Out No longer eligible b ased on patient's age to complete this topic Varicella Vaccines Aged Out No longer eligible based on patient's age to complete this topic Care Teams Importer Or Exporter Relationship Specialty Start Date End Date Alexei Miranda MD [address] [place] [address] Dr Rosalba [place] PCP - General 08/02/19
--- OUTSIDE RECORDS SUMMARY | 2024-11-03 15:38 | XMS_ITS | Patient Health Record ---
Author Organization [facility] Address [address] [place] [address] Care Team Providers Care Pipe Covering Molder Name Role Phone Alexei Miranda Primary Care Provider Unavailab Kenneth Munoz Unavailable [phone] ALLERGIES No Known Allergies REASON FOR REFERRAL No Information MEDICATIONS Medication SIG (Take, Route, Frequency, Duration) Notes Start Date End Date Status Atorvastatin Calcium 20 MG 1 tablet Oral ly Once a day for 30 day(s) Active Eliquis 5 MG as directed Orally Active Metoprolol Succinate 25 MG 1 capsule Ora lly Once a day for 30 day(s) Active Aspirin 81 81 MG 1 tablet Orally Once a day for 30 day(s) Active IMMUNIZATIONS Vaccine Route Administration Date Status Comme nts Influenza Unknown 07/25/2021 Administered SOCIAL HISTORY Sex Assigned At : Social History Observation Description Sex Assigned At Unknown PROBLEMS Problem Type ICD Code Onset Dates Problem Status W/U Status Risk SNOMED Code Notes Problem Encounter for screening for malignant neoplasm of colon (Z12.11) Active confirmed 391856559 Problem Personal history of colonic polyps (Z86.010) Active confirmed History of poly p of colon (situation) (296514093) Problem Gastroesophageal reflux disease without esophagitis (K21.9) Active confirmed 317812734 Problem Preprocedural examination (Z01.818) Active confirmed 493073223872500 Problem Hx of adenomatous colonic polyps (Z86.010) Active confirmed 229587806 Problem Diverticulosis of colon (K57.30) Active confirmed Diverticulosi s of colon (465761369) PLAN OF TREATMENT Future Test Test Name Order Date COLONOSCOPY 12/30/2014 COLONOSCOPY 07/25/2021 Insurance Providers Payer Name Payer Address Payer Phone Subscriber Number Group Number Insured Name Patient Relationship to Insured Coverage Start Date Coverage End Date [facility] [address] [place], [place] [id number] ARACELIS BOLANOS Self - patient is the insured MEDICAL (GENERAL) HISTORY Medical History History ICD Code Denies DM,Lung disease,renal disease CA 2018 with 3V CABG --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 Carla bee--no esophagitis, no Solomon's, Neg H.pylori, normal duodenal biopsies Surgical History Surgery Date(Month/Year) Vasectomy 3V-CABG 2019 Left hip replacment 06/2020 Left inguinal hernia in 2018 Left knee
== END 2024-11-03 14:56 | disposition home or self-care (01) ==
PROVIDERS: PCP Family Medicine; Visit Provider Family Medicine
DX: B33.8 Other specified viral diseases (principal)

== ENCOUNTER 2024-11-26 06:03 | Outpatient (REF) | payer BC, SELFPAY ==
--- OUTSIDE RECORDS SUMMARY | 2024-11-26 06:05 | XMS_ITS | Data Portability ---
Author Organization [facility], OFFICE Address [address], [facility] [address] [place] [address] Assessment Encounter Date Assessment Date Assessment LastModified by Organization Details LastModified Time 10/13/2019 10/13/2019 We discussed the options related to his treatment. Mr. Baum has advanced OA with complete loss of the cartilage space interval, asphericity, subchondral sclerosis and cyst formation. Left total hip arthroplasty is clearly the most reasonable treatment alternative at whatever point his coat operator insulator feels that it is reasonable which may [...] 3 completed Yair Godoy MD [address], [place], [address], [place] - [facility] 10/13/2019 18:00:02 total replacement of left hip joint completed Yair Godoy MD [address], [place], [address], [place] - [facility] 08/21/2020 18:00:53 Imaging Results None recorded. Procedure Notes None recorded. Medical Equipment None Reported. Allergies No known drug allergies Medications Name Sig Start Date Stop Date Status Note LastModified by Organization Details LastModified Time atorvastatin calcium 80 mg tabs active Not [...] active Not Available Not Available Not Available eliquis 5 mg tabs active Not Available [...] Updated DateTime 10/13/2019 170.18 cm 27.4 kg/m2 68813.66 g 115 mm[Hg] 80 mm[Hg] Hina Maxwell [place] - [facility]d [facility]ry 0 12:29:45 Social History Question Answer Notes LastModified by Organizat ion Details LastModified Time Tobacco Smoking Status Never Smoker Hina Maxwell null, [place] - [facility] 10/13/2019 12:29:32 Do You Or Have You Ever Used E-cigarettes Or Vape? Never Used Electronic Cigarettes [email or web address] Information not available 10/13/2019 What Was The Date Of Your Most Recent Tobacco Screening? 10/13/2019 [email or web address] Information not available 10/13/2019 Do You Or Have You Ever Used Smokeless Tobacco? Never Used Smokeless Tobacco [email or web address] Information not available 10/13/2019 How Much Tobacco Do You Smoke? No [email or web address] Information not available 10/13/2019 How Many Years Have You Smoked Tobacco? 0 [email or web address] Information not available 10/13/2019 Sex: Unknown Functional Status None recorded. Mental Status None recorded. Family History Relationship Description Onset Age of this Age Resolved Age Notes LastModified by Organization Details LastModified Time Father Myocardial infarction sbm Not available 10/13 17:58:43 Mother Coronary artery bypass graft sbm Not available 17:58:56 Medical History Condition Response Stroke Y High Cholesterol Y Hypertension Y Past Encounters Encounter ID Performer Location Encounter Start Date Encounter Closed Date Diagnosis/Indication Diagnosis SNOMED-CT Code Diagnosis ICD10 Code Diagnosis Note [id number] Yair Godoy MD OFFICE [address], [address] [place] [address] 10/13/2019 11:38:42 10/18/2019 20:32:37 [id number] Yair Godoy MD [facility] [address] [place] [address] 08/21/2020 12:17:40 08/21/2020 18:29:28 Health Concerns Section Related Observation LastModified by Organization Detai ls LastModified Time None Recorded Concern Status LastModified by Organization Details LastModified Time None Recorded Advance Directives Directive None Recorded Payers Encounter Date Sequence Insurance Name Policy Number Policy Leone Covered Member ID Leone Member ID Guarantor Name 10/13/2019 1 [place] [id number] Julio Cesar Jaramillo [id number] Julio Cesar Jaramillo 08/21/2020 1 [place]) [id number] Julio Cesar Jaramillo [id number] Julio Cesar Jaramillo Notes Date Note [...] Godoy MD [address], [place], [address], [place] - Comp-Assistd and Rcnstrctive Surgry 10/13/2019 [...] scan Previous PT:helped significantly Yair Godoy MD [address] [place] [address],[facility] [address], [place], [address], [place] - Comp-Assistd and Rcnstrctive Surgry 08/21/2020 18:03:07
--- OUTSIDE RECORDS SUMMARY | 2024-11-26 06:05 | XMS_ITS | Encounter Summary ---
Author Organization [facility] Address [address] [place] [address] Care Team Providers Care Parole Hearing Officer Name Role Phone Alexei Miranda MD Primary Care Provider Reason for Visit * Reason Onset Date Comments Appointment 11/03/2024 Encounter Details Date Type Department Care Team (Late st Contact Info) Description 11/03/2024 Telephone [facility] Associates [facility] [address] [facility] [address] [place] [address] Amalia Gallo NP [address] [place] [address] Dr [address] [place] [address] Appointment Social History Tobacco Use Types Packs/Day [...] Description 12/08/2024 2:40 PM EDT Office Visit [facility] Cardiology [facility] [address] [place] [address] [address] [place] [address] Amalia Gallo, BLESSING [address] [place] [address] Dr [address] [place] [address] documented as of this encounter Visit Diagnoses Not on filedocumented in this encounter Care Teams Parole Hearing Officer Relationship Specialty Start Date End Date Alexei Miranda MD [address] [place] [address] Dr [address] [place], [place] PCP - General 08/02/19 documented as of this encounter
--- OUTSIDE RECORDS SUMMARY | 2024-11-26 06:06 | XMS_ITS | Clinical Summary ---
Author Organization [facility] ity Address [address] [place] [address] Care Team Providers Care Inspector Automatic Typewriter Name Role Phone Alexei Miranda MD Primary Care Provider [phone] Allergies No known active allergies Medications aspirin 81 mg EC tablet TAKE 1 TABLET BY MOUTH EVERY DAY 90 tablet 2 09/23/2024 Active metoprolol tartrate (LOPRESSOR) 25 mg tablet Take 25 mg by mouth 2 times daily. Active atorvastatin (LIPITOR) 80 mg tablet Take 80 mg by mouth daily. 07/18/2019 Active Eliquis 5 mg tablet Take 5 mg by mouth 2 times daily. 07/18/2019 Active Active Problems Problem Noted Date Diagnosed Date Dyslipidemia 02/21/2023 Overview (11/04/2024): Last Assessment & Plan: Patient's last LDL cholesterol was 129. This is above goal. He has been on presumed Crestor since the summer. He will call us to update his medication list. I have given him a lab slip to repeat his labs in the near future. Goal LDL is less than 70. Atrial fibrillation 08/03/2021 Overview (11/04/2024): Last Assessment & Plan: Patient has history of atrial fibrillation postoperatively. 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 He continues on anticoagulation due to elevated [id number] score. He denies any bleeding or excessive bruising. He will continue on 5 mg twice daily as prescribed. Coronary artery disease 08/03/2021 Overview (11/04/2024): Last Assessment & Plan: Patient has history of CAD s/p CABG. He feels well and denies any anginal symptoms. He continues on cardioprotective medical therapy with aspirin, beta-nettie and statin. I will make no changes to his medical therapies today. I have reviewed with the patient the importance of a heart healthy lifestyle which includes eating a low-fat low-salt diet, getting regular exercise, maintaining a healthy weight, not smoking, and following up with routine medical care. Hypertension 08/03/2021 Overview (11/04/2024): Last Assessment & Plan: Blood pressures under excellent control with a reading today of 128/82. He will continue on his medications as prescribed. Encounters Date Type Department Care Team Description 11/03/2024 Telephone [facility] - [facility] [address] [facility] [address] [place] [address] Amalia Gallo NP Appointment from [...] Description 12/08/2024 2:40 PM EDT Office Visit [facility] [address] [place] [address] Amalia Gallo NP [address] [place] [address] Dr [address] [place] [address] Health Maintenance Due Date Last Done Comments [...] on patient's age to complete this topic Insurance [facility] ([facility]) Care Teams Inspector Automatic Typewriter Relationship Specialty Start Date End Date Alexei Miranda MD [address] [place] [address] Dr Rosalba [place] PCP - General 08/02/19
--- OUTSIDE RECORDS SUMMARY | 2024-11-26 06:06 | XMS_ITS | Patient Health Record ---
Author Organization [facility] Address [address] [place] [address] Care Team Providers Care Instrument Processing Tech Name Role Phone Alexei Miranda Primary Care Provider Unavailab Kenneth Munoz Unavailable [phone] Allergies No Known Allergies Reason For Referral No Information Medications Medication SIG (Take, Route, Frequency, Duration) Notes Start Date End Date Status Atorvastatin Calcium 20 MG 1 tablet Oral ly Once a day for 30 day(s) Active Eliquis 5 MG as directed Orally Active Metoprolol Succinate 25 MG 1 capsule Ora lly Once a day for 30 day(s) Active Aspirin 81 81 MG 1 tablet Orally Once a day for 30 day(s) Active Immunizations Vaccine Route Administration Date Status Comme nts Influenza Unknown 07/25/2021 Administered Problems Problem Type SNOMED Code ICD Code Onset Dates Problem Status W/U Status Risk Notes Problem 776772935 Encounter for screening for malignant neoplasm of colon (Z12.11) Active confirmed Problem History of polyp of colon (situation) (243476453) Personal history of colonic polyps (Z86.010) Active confirmed Problem 547034997 Gastroesophageal reflux disease without esophagitis (K21.9) Active confirmed Problem 932304213159433 Preprocedural examination (Z01.818) Active confirmed Problem 812055398 Hx of adenomatou s colonic polyps (Z86.010) Active confirmed Problem Diverticulosis of colon (421330657) Diverticulosis of colon (K57.30) Active confirmed Plan Of Treatment Future Test Test Name Order Date COLONOSCOPY 12/30/2014 COLONOSCOPY 07/25/2021 Insurance Providers Payer Name Payer Address Payer Phone Subscriber Number Group Number Insured Name Patient Relationship to Insured Coverage Start Date Coverage End Date [facility] [address] [place], [place] [id number] ARACELIS BOLANOS Self - patient is the insured Medical (General) History Medical History History ICD Code Denies DM,Lung disease,renal disease [place] 2018 with 3V CABG --Materials Handling Equipment Operator is You Flor at [facility] 2 CVA's in relation to Afib during the C ABG Colonoscopy in 02/2015 with a small tubul ar adenoma removed Hyperlipidemia GERD-EGD 02/[address] Carla bee--no esophagitis, no Solomon's, Neg H.pylori, normal duodenal biopsies Surgical History Surgery Date(Month/Year) Vasectomy 3V-CABG 2018 Left hip replacment 06/2020 Left inguinal hernia in 2018 Left knee
[2024-11-26 08:06] LABS: Alanine Aminotransferase 33 U/L (0-40); Albumin Level 4.3 g/dL (3.5-5.0); Alkaline Phosphatase 67 U/L (39-117); Anion Gap 13 (12-20); Aspartate Amino Transferase 37 U/L (5-37); Bilirubin Total 0.7 mg/dL (0.0-1.0); Blood Urea Nitrogen 19 mg/dL (9-16); Calcium 9.3 mg/dL (8.4-10.2); Carbon Dioxide 27 mmol/L (22-29); Chloride 106 mmol/L (96-108); Cholesterol 162 mg/dL (<200); Estimated Glomerular Filt Rate > 60; Glucose Fasting 97 mg/dL (60-99); HDL Cholesterol 65 mg/dL (>40); LDL Cholesterol Calculated 84 mg/dL (<100); Potassium 4.5 mmol/L (3.3-5.1); Sodium 141 mmol/L (135-145); Total Protein 7.7 g/dL (6.5-8.0); Triglycerides 68 mg/dL (<150)
== END 2024-11-26 06:04 | disposition home or self-care (01) ==
LOC: HO.LAB 06:03
PROVIDERS: PCP Family Medicine; Visit Provider Family Medicine
DX: Z00.00 Encounter for general adult medical examination without abnormal findings (principal); I25.10 Atherosclerotic heart disease of native coronary artery without angina pectoris
CPT/HCPCS: 36415; 80053; 80061

== ENCOUNTER 2024-11-30 14:33 | Outpatient (AMB) | payer BC, SELFPAY ==
--- NOTE | 2024-11-30 15:04 | A.OFFPC_ITS ---
Vital Signs 11/30/24 15:09 Height 5 ft 7 in Weight 199 lb 6 oz BMI 31.2 BP 118/60 Blood Pressure Location Rt brachial Position Sitting Respiration 14 Pulse 54 Pulse Source Pulse Oximeter Temp 98.2 F Temp Source Oral Pulse Oximetry (%) 98 Oxygen Delivery Method Room Air Intake Visit Reasons: f/u HTN & HLD & Labs Intake Note: Patient is schedule for lab review Underwriting Technician Required: No Allergies No Known Allergies [No Known Allergies*] Allergy (Verified 11/30/24 15:08) Medication List - Last Reconciled 11/30/24 by Alexei Miranda MD apixaban (Eliquis) 5 mg PO BID aspirin (Adult Aspirin Regimen) 81 mg PO DAILY ezetimibe (Zetia) 10 mg PO DAILY 90 days metoprolol tartrate 25 mg PO BID omeprazole 20 mg PO DAILY rosuvastatin 40 mg PO DAILY 90 days sildenafil 100 mg PO DAILY PRN 90 days Tobacco use date assessed: 04/29/24 Dental Screening Dental Screen Date: 04/29/24 HPI f/u HTN & HLD & Labs HPI Details 64 y/o male presents to f/u HTN, HLD, la bs. Labs drawn 11/26/24. Reviewed labs with pt. Triglycerides 68. TC 162. LDL 84. HDL 65. Blood pressure today 118/60, 54p. He is on metoprolol 25mg b.i.d. Reports R heel pain. [facility] Medical History Elevated cholesterol COVID-19 vaccine series completed GERD (gastroesophageal reflux disease) CVA (cerebral vascular accident) On beta nettie at home On anticoagulant therapy Myocardial infarction CAD (coronary artery disease) HTN (hypertension) Surgical History History of esophagogastroduodenoscopy (EGD) Hx of arthroscopy of left knee Hx of colonoscopy Hx of inguinal hernia repair History of hip surgery S/P triple vessel bypass Family History Father CAD (coronary artery disease) Brother No problems noted. Brother No problems noted. Sister No problems noted. Sister No problems noted. Son No problems noted. Daughter No problems noted. Social History (Updated 04/29/24 @ 16:28 by JOSE ANTONIO Miranda) Household Members: Spouse Housing: House Are you a primary respiratory care faculty to a significant other at home: No Do you presently have visiting nurse or other home services: No Alcohol intake: current Alcohol intake frequency: holidays/special occasions only Patient Tobacco Use Status: Never used Tobacco e-Cigarette/Vaping Use: Never Used service: No Current occupational status: employed Current occupation: [employer] Cognitive needs: No Hearing needs: No Vision needs: No Questionnaire Thrive Questionnaire Date Thrive assessed: 10/29/24 I am a: Patient What is your living situation today?: I have a steady place to live Within the past 12 months, did the food you bought not last and you didn't have the money to get more?: Never true Within the past 12 months, did you worry whether your food would run out before you got money to buy more?: Never true Do you have trouble paying for medicines?: No Do you have trouble getting transportation to medical appointments?: No Do you have trouble paying your heating and electricity bill?: No Do you have trouble taking care of your child, family member or friend?: No Do you have trouble with day-to-day activities such as bathing, preparing meals, shopping, managing finances, etc.?: No Are you currently unemployed and looking for a job?: No Are you interested in more education?: No Please select the resources that you would like help with: None Currently or been in a relationship where the following occur: No concerns reported THRIVE Score: 0 CRISTHIAN-7 AMB Questionnaire CRISTHIAN-7 Date CRISTHIAN - 7 assessed: 04/29/24 Source: Developed by Drs. Kenneth Jeffrey, Tequila Renee, Blas Branch and colleagues, with an educational aicha from [employer]. Review of Systems Const Denies chills, Denies fatigue, Denies fever(s), Denies headache(s) and Denies weakness ENT Denies dizziness and Denies headache(s) Card Denies dyspnea Resp Denies cough, Denies dyspnea, Denies wheezing and Denies other (shortness of breath) Musc Denies numbness and Denies tingling Neuro Denies dizziness, Denies headache(s), Denies numbness, Denies tingling and Denies weakness Psych Denies anxiety and Denies depression Endo Denies fatigue Aller/Immun Denies wheezing Physical exam (Primary Care) Vital Signs: Last Vital Signs Temp 98.2 F 11/30/24 15:09 Pulse 54 11/30/24 15:09 Resp 14 11/30/24 15:09 BP 118/60 11/30/24 15:09 Pulse Ox 98 11/30/24 15:09 Oxygen Delivery Method Room Air 11/30/24 15:09 BMI result Body Mass Index 31.2 Tobacco/Smoking Status: Tobacco use Status Tobacco use date assessed 04/29/24 11/30/24 15:05 Patient Tobacco Use Status Never used Tobacco 11/30/24 15:05 e-Cigarette/Vaping Use Never Used 11/30/24 15:05 Thrive Assessment: Date of Thrive Assessment Date Thrive assessed 10/29/24 11/30/24 15:05 Currently or been in a relationship where the following occur: No concerns reported Const General: well developed; No acute distress Nutritional Appearance: well nourished Orientation/consciousness: patient oriented x3 HENMT Head: Yes normocephalic and Yes atraumatic Eyes General: appearance normal, both eyes and all related structures Pupils: Equal, round and reactive pupils present EOM: EOMs intact bilaterally Resp Effort & Inspection: normal respiratory effort Neuro General: patient oriented x3 and gait normal Cranial nerves: Yes Equal, round and reactive pupils present Psych Affect: normal affect Coding Level of Care Code Est Pt Level 4 (10458) Diagnoses Essential hypertension I10 CAD (coronary artery disease) I25.10 Pre-diabetes R73.03 Hyperlipidemia E78.5 Pain of right heel M79.671 Assessment & Plan Assessment & Plan (1) Essential hypertension: Code(s): I10 - Essential (primary) hypertension Category: Medical Plan: Blood?pressure?is?controlled.??Goal?is?less?than?130/80 Continue?current?medication (2) CAD (coronary artery disease): Comment: Sees Dr. Andrea Flor [facility]- #[id number] Code(s): I25.10 - Atherosclerotic heart disease of habematolel coronary artery without angina pectoris Category: Medical Plan: History?of?coronary?artery?disease?and?following?his?lipids.\ Still?not?at?goal?despite?rosuvastatin?40?mg?daily?and?Zetia. LDL?goal?is?less?than?70 HDL is?desirably?high?and?HDL?ratios?are?good Recommend?he?discuss?lipid?control?with?his?color strainer?and?he?has?an?upcoming? appointment. No?change?to?his?medication?regimen?today Continue?working?on?a?diet?low?in?saturated?fats?and?cholesterol. Work?on?weight?loss?and?patient?says?he?in?his?do?so. (3) Pre-diabetes: Code(s): R73.03 - Prediabetes Category: Medical Plan: History?of?pre?diabetes His?fasting?blood?sugar?is?less?than?100 Encouraged?weight?loss (4) Hyperlipidemia: Code(s): E78.5 - Hyperlipidemia, unspecified Category: Medical Plan: As?above Continue?rosuvastatin?and?Zetia Follow-up?with?Cardiology (5) Pain of right heel: Code(s): M79.671 - Pain in right foot Category: Medical Plan: Demonstrated?exercises Also?advised?ice?after running. He?has?an?appointment?with?Podiatry
[2024-11-30 15:09] VITALS: BP 118/60; PULSE 54; RESP 14; TEMP 36.8; O2SAT 98; BMI 31.2
--- OUTSIDE RECORDS SUMMARY | 2024-11-30 17:51 | XMS_ITS | Data Portability ---
Author Organization [facility], OFFICE Address [address], [facility] [address] [place] [address] Assessment Encounter Date Assessment Date Assessment LastModified by Organization Details LastModified Time 10/13/2019 10/13/2019 We discussed the options related to his treatment. Mr. Baum has advanced OA with complete loss of the cartilage space interval, asphericity, subchondral sclerosis and cyst formation. Left total hip arthroplasty is clearly the most reasonable treatment alternative at whatever point his travel counselor automobile club feels that it is reasonable which may [...] 3 completed Yair Godoy MD [address], [place], [address], [place] [facility] 10/13/2019 18:00:02 total replacement of left hip joint completed Yair Godoy MD [address], [place], [address], [place] [facility] 08/21/2020 [...] Updated DateTime 10/13/2019 170.18 cm 27.4 kg/m2 24164.66 g 115 mm[Hg] 80 mm[Hg] Hina Maxwell [place] - [facility] 0 12:29:45 Social History Question Answer Notes LastModified by Organizat ion Details LastModified Time Tobacco Smoking Status Never Smoker Hina Maxwell null, [place] - [facility] 10/13/2019 12:29:32 Do You Or Have You Ever Used E-cigarettes Or Vape? Never Used Electronic Cigarettes [email or web address] Information not available 10/13/2019 What Was The Date Of Your Most Recent Tobacco Screening? 10/13/2019 [email or web address] Information not available 10/13/2019 Do You Or Have You Ever Used Smokeless Tobacco? Never Used Smokeless Tobacco [email or web address] Information not available 10/13/2019 How Much Tobacco Do You Smoke? No Information not available 10/13/2019 How Many Years Have You Smoked Tobacco? 0 [email or web address] Information not available 10/13/2019 Sex: Unknown Functional [...] SNOMED-CT Code Diagnosis ICD10 Code Diagnosis Note [id number] Yair Godoy MD OFFICE [address] [place] [address] 10/13/2019 11:38:42 10/18/2019 20:32:37 [id number] Yair Godoy MD [facility] [address] [place] [address] 08/21/2020 12:17:40 08/21/2020 18:29:28 Health Concerns Section Related Observation LastModified by Organization Detai ls LastModified Time None Recorded Concern Status LastModified by Organization Details LastModified Time None Recorded Advance Directives Directive None Recorded Payers Encounter Date Sequence Insurance Name Policy Number Policy Leone Covered Member ID Leone Member ID Guarantor Name 10/13/2019 1 [place] [id number] Julio Cesar Jaramillo [id number] Julio Cesar Jaramillo 08/21/2020 1 [place] [id number] Julio Cesar Jaramillo [id number] Julio Cesar Jaramillo Notes Date Note [...] Godoy MD [address], [place], [address], [place] - [facility] 10/13/2019 [...] scan Previous PT:helped significantly Yair Godoy MD [address] [place] [address],[facility] [address], [place], [address], [place] - [facility] 08/21/2020 18:03:07
--- OUTSIDE RECORDS SUMMARY | 2024-11-30 17:51 | XMS_ITS | Encounter Summary ---
Author Organization [facility] Address [address] [place] [address] Care Team Providers Care Market Research Worker Name Role Phone Alexei Miranda MD Primary Care Provider Reason for Visit * Reason Onset Date Comments Appointment 11/03/2024 Encounter Details Date Type Department Care Team (Late st Contact Info) Description 11/03/2024 Telephone [facility] [address] [facility] [address] [place] [address] Amalia Gallo NP [address] [place] [address] [address] [place] [address] Appointment Social History Tobacco Use Types Packs/Day [...] Description 12/08/2024 2:40 PM EDT Office Visit [facility] [address] [place] [address] [address] [place] [address] Amalia Gallo, BLESSING [address] [place] [address] Dr [address] [place] [address] documented as of this encounter Visit Diagnoses Not on filedocumented in this encounter Care Teams Market Research Worker Relationship Specialty Start Date End Date Alexei Miranda MD [address] [place] [address] Dr [address] [place], [place] PCP - General 08/02/19 documented as of this encounter
--- OUTSIDE RECORDS SUMMARY | 2024-11-30 17:51 | XMS_ITS | Clinical Summary ---
Author Organization [facility] ity Address [address] [place] [address] Care Team Providers Care Tire Fabric Inspector Name Role Phone Alexei Miranda MD Primary Care Provider Allergies No known active allergies Medications aspirin [...] He continues on anticoagulation due to elevated [id number] score. He denies any bleeding or excessive [...] Type Department Care Team Description 11/03/2024 Telephone [facility] - [facility] [address] [facility] [address] [place] [address] Amalia Gallo NP Appointment from [...] Description 12/08/2024 2:40 PM EDT Office Visit [facility] [address] [place] [address] Amalia Gallo NP [address] [place] [address] Dr [address] [place] [address] Health Maintenance Due Date Last Done Comments [...] patient's age to complete this topic Insurance [facility] ([facility]) Care Teams Tire Fabric Inspector Relationship Specialty Start Date End Date Alexei Miranda MD [address] [place] [address] Dr Rosalba [place] PCP - General 08/02/19
--- OUTSIDE RECORDS SUMMARY | 2024-11-30 17:52 | XMS_ITS | Patient Health Record ---
Author Organization [facility] Address [address] [place] [address] Care Team Providers Care Grid Maker Name Role Phone Alexei Miranda Primary Care Provider Unavailab Kenneth Munoz Unavailable [phone] Allergies No Known Allergies Reason For Referral [...] Problem Status W/U Status Risk Notes Problem 211398195 Encounter for screening for malignant neoplasm of colon (Z12.11) Active confirmed Problem History of polyp of colon (situation) (398519395) Personal history of colonic polyps (Z86.010) Active confirmed Problem 643205789 Gastroesophageal reflux disease without esophagitis (K21.9) Active confirmed Problem 794324281174918 Preprocedural examination (Z01.818) Active confirmed Problem 847316933 Hx of adenomatou s colonic polyps (Z86.010) Active confirmed Problem Diverticulosis of colon (386965169) Diverticulosis of colon (K57.30) Active confirmed Plan Of Treatment Future Test Test Name Order Date COLONOSCOPY 12/30/2014 COLONOSCOPY 07/25/2021 Insurance Providers Payer Name Payer Address Payer Phone Subscriber Number Group Number Insured Name Patient Relationship to Insured Coverage Start Date Coverage End Date [facility] [address] [place], [place] [id number] ARACELIS BOLANOS Self - patient is the insured Medical (General) History Medical History History ICD Code Denies DM,Lung disease,renal disease [place] 2018 with 3V CABG --Claim Examiner is You Flor at [facility] 2 CVA's in relation to Afib during the C ABG Colonoscopy in 02/2015 with a small tubul ar adenoma removed Hyperlipidemia GERD-EGD 02/[address] Carla bee--no esophagitis, no Solomon's, Neg H.pylori, normal duodenal biopsies Surgical History Surgery Date(Month/Year) Vasectomy 3V-CABG 2018 Left hip replacment 06/2020 Left inguinal hernia in 2018 Left knee
== END 2024-11-30 16:05 | disposition home or self-care (01) ==
LOC: HO.HMCFM 14:34
PROVIDERS: PCP Family Medicine; Visit Provider Family Medicine
DX: I10 Essential (primary) hypertension (principal); I25.10 Atherosclerotic heart disease of native coronary artery without angina pectoris; R73.03 Prediabetes; E78.5 Hyperlipidemia, unspecified; M79.671 Pain in right foot

== ENCOUNTER 2025-03-29 06:01 | Outpatient (REF) | payer BC, SELFPAY ==
--- OUTSIDE RECORDS SUMMARY | 2025-03-29 06:07 | XMS_ITS | Data Portability ---
Author Organization [facility], OFFICE Address [address], [facility] [address] [place] [address] Assessment Encounter Date Assessment Date Assessment LastModified by Organization Details LastModified Time 10/13/2019 10/13/2019 We discussed the options related to his treatment. Mr. Baum has advanced OA with complete loss of the cartilage space interval, asphericity, subchondral sclerosis and cyst formation. Left total hip arthroplasty is clearly the most reasonable treatment alternative at whatever point his telephone diaphragm assembler feels that it is reasonable which may [...] x 3 completed Yair Godoy MD [address] [facility] [address], [place], [address], [place] [facility] 10/13/2019 18:00:02 total replacement of left hip joint completed Yair Godoy MD [address], [place], [address], [place] - [facility] 08/21/2020 [...] Body mass index (BMI) Body weight Systolic And Diastolic Provider Name and Address Organization Details Last Updated DateTime 10/13/2019 170.18 cm 27.4 kg/m2 91705.66 g 115/80 mm[Hg] Hina Maxwell [place] - [facility] 10/13/2019 12:29:45 Social History Question Answer Notes LastModified by Organizat ion Details LastModified Time Tobacco Smoking Status Never Smoker Hina Maxwell null, [place] - [facility] 10/13/2019 12:29:32 What Was The Date Of Your Most Recent Tobacco Screening? 10/13/2019 [email or web address] Information not available 10/13/2019 How Much Tobacco Do You Smoke? No [email or web address] Information not available 10/13/2019 How Many Years Have You Smoked Tobacco? 0 [email or web address] Information not available 10/13/2019 Sex: Unknown Functional Status Question Answer Note LastModified by Organizat ion Details LastModified Time Do you or have you ever used smokeless tobacco? Never used smokeless tobacco [email or web address] Information not available 10/13/2019 Do you or have you ever used e-cigarettes or vape? Never used electronic cigarettes [email or web address] Information not available 10/13/2019 Mental Status None recorded. Family History Relationship [...] SNOMED-CT Code Diagnosis ICD10 Code Diagnosis Note [id number] Yair Godoy MD OFFICE [address] [place] [address] 10/13/2019 11:38:42 10/18/2019 20:32:37 [id number] Yair Godoy MD [facility] [address] [place] [address] 08/21/2020 12:17:40 08/21/2020 18:29:28 Health Concerns Section Related Observation LastModified by Organization Detai ls LastModified Time None Recorded Concern Status LastModified by Organization Details LastModified Time None Recorded Advance Directives Directive None Recorded Payers Insurance Date Sequence Insurance Name Policy Number Policy Leone Covered Member ID Leone Member ID Guarantor Name 08/21/2020 1 [place] [id number] Julio Cesar Jaramillo [id number] Julio Cesar Jaramillo Notes Date Note [...] not help Yair Godoy MD [address], [place], [address], [place] - [facility]-Ass[facility]d and [facility] Surg[facility] 10/13/2019 [...] scan Previous PT:helped significantly Yair Godoy MD [address] [place] [address],[place] [address], [place], [address], [place] - Comp-Assistd and Rcnstrctive Surgry 08/21/2020 18:03:07
--- OUTSIDE RECORDS SUMMARY | 2025-03-29 06:07 | XMS_ITS | Clinical Summary ---
Author Organization [facility] [employer] [facility] Address [address] [facility] [place] [address] Phone Care Team Providers Care Sweet Pickle Maker Name Role Phone Alexei Miranda MD Primary Care Provider Allergies No known active allergies Medications aspirin 81 mg EC tablet TAKE 1 TABLET BY MOUTH EVERY DAY 90 tablet 2 5 Active metoprolol tartrate (LOPRESSOR) 25 mg tablet Take 25 mg by mouth 2 times daily. Active Eliquis 5 mg tablet Take 5 mg by mouth 2 times daily. 9 Active rosuvastatin (CRESTOR) 40 mg tablet Take 1 tablet (40 mg total) by mouth 1 (one) time each day. Active ezetimibe (ZETIA) 10 mg tablet Take 1 tablet (10 mg total) by mouth 1 (one) time each day. Active evolocumab (Repatha SureClick) 140 mg/mL pen injector injectionIndica tions:Coronary artery disease involving [place] coronary artery of [place] heart without angina pectoris,Dyslip idemia INJECT 1 ML (140 MG TOTAL) UNDER THE SKIN EVERY 14 DAYS. 6 Pen 1 5 Active evolocumab (Repatha SureClick) 140 mg/mL pen injector injectionIndica tions:Coronary artery disease involving [place] coronary artery of [place] heart without angina pectoris,Dyslip idemia Inject 1 mL (140 mg total) under the skin every 14 (fourteen) days. 2 mL 3 5 03/03/20 25 Discontinued Active Problems Problem Noted Date Diagnosed Date [...] future. Goal LDL is less than 70. Assessment & Plan (12/08/2024 3:21 PM EDT): LDL cholesterol is less than 70. Patient is on rosuvastatin 40 mg once a day and Zetia 10 mg daily. His last LDL cholesterol was 84 and he has been on this medical therapy for over 3 months. We discussed that the goal LDL cholesterol is less than 70 given his known coronary artery disease and recommend that he start a PSK 9 inhibitor. After long discussion patient is agreeable to starting PSK 9 inhibitor and he will start Repatha 140 mg every 2 weeks with the goal to get his LDL cholesterol down in efforts to decrease his cardiovascular risk. He will repeat lipid panel in approximately 3 months and we will continue to monitor his treatment. Atrial fibrillation ([facility] V24, CMS/HCC V28) 1 10/03/2020 Overview (11/04/2024): Last Assessment & Plan: Patient has history of atrial fibrillation postoperatively. 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 He continues on anticoagulation due to elevated [id number] score. He denies any bleeding or excessive bruising. He will continue on 5 mg twice daily as prescribed. Assessment & Plan (12/08/2024 3:11 PM EDT): Patient has history of atrial fibrillation postoperatively. 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 He continues on anticoagulation due to elevated [id number] score. He denies any bleeding or excessive [...] and following up with routine medical care. Assessment & Plan (12/08/2024 3:11 PM EDT): Patient has history of CAD s/p CABG. [...] will continue on his medications as prescribed. Assessment & Plan (12/08/2024 3:11 PM EDT): Blood pressures under excellent control with a reading today of 128/82. He will continue on his medications as prescribed. Surgical History Surgery Date Site/Laterality Comments CORONARY [...] drink = 0.6 oz pur e alcohol) drinks moderately on weekends Sex and Gender Information Value Date Recorded Sex Assigned at Not on file Legal Sex Male 11:59 AM EST Gender Identity Not on file Sexual Orientation Not on file Obstetrics History Last Filed Vital Signs Vital Sign Reading Time Taken Comments Blood Pressure 108/72 12/08/2024 2:39 PM EDT Pulse 55 12/08/2024 2:39 PM EDT Temperature - - Respiratory Rate - - Oxygen Saturation 96% 12/08/2024 2:39 PM EDT Inhaled Oxygen Concentration - - Weight 88.8 kg (195 lb 11.2 oz) 12/08/2024 2:39 PM EDT Height 170.2 cm (5' 7 ) 12/08/2024 2:39 PM EDT Body Mass Index 30.65 12/08/2024 2:39 PM EDT Plan of Treatment Upcoming Encounters Date Type Department Care Team (Late st Contact Info) Description 05/20/2025 9:20 AM EDT Office Visit [facility] [address] [place] [address] Charlie Gaona MD [address] [place] [address] [address]IVE [address] [place], [place] [id number] Health Maintenance Due Date Last Done Comments DTaP,Tdap,and Td Vaccines (1 - Tdap) 1979 Pneumococcal Vaccine: 50+ Years (1 of 1 - PCV) 2010 Zoster Vaccines (1 of 2) 2010 Cholesterol Screening (Lipid Panel) 08/20/2022 Colorectal Cancer Screening: Colonoscopy 08/20/2022 Depression Screening 08/20/2022 HIV Screening 08/20/2022 Hepatitis C Screening 08/20/2022 Social Influencers of Health Screening 08/20/2022 Hypertension/CHF/CAD Annual BMP Blood Test 09/06/2022 COVID-19 Vaccine ( season) 2024 10/09/2021, 12/29/2020, 12/08/2020 Influenza Vaccine (#1) 2025 2, 07/25/2021, 06/25/2020, Additional history exists RSV Immunization Adult Patients (1 - 1-dose 75+ series) 2035 HIB Vaccines Aged Out No longer eligi [...] age to complete this topic Meningococcal B Vaccine Aged Out No l onger eligible based on patient's age to complete this topic Pneumococcal Vaccine: Pediatrics (0 to 5 Years) and At-Risk Patients (6 to 49 Years) Aged Out No longer eligible based on patient's age to complete this topic RSV Immunization Patients Under 20 months Aged Out No longer eligible based on patient's age to complete this topic Varicella Vaccines Aged Out No longer eligible based on patient's age to complete this topic Insurance [facility] ([facility]) Care Teams Sweet Pickle Maker Relationship Specialty Start Date End Date Alexei Miranda MD [address] [place] [address] Dr Rosalba [place] PCP - General 08/02/19
--- OUTSIDE RECORDS SUMMARY | 2025-03-29 06:08 | XMS_ITS | Patient Health Record ---
Author Organization [facility] Address [address] [place] [address] Care Team Providers Care Electronic Gaming Device Supervisor Name Role Phone Alexei Miranda Primary Care Provider Unavailab Kenneth Munoz Unavailable [phone] Allergies No Known Allergies Reason For Referral [...] Problem Status W/U Status Risk Notes Problem 101527245 Encounter for screening for malignant neoplasm of colon (Z12.11) Active confirmed Problem History of polyp of colon (situation) (550587147) Personal history of colonic polyps (Z86.010) Active confirmed Problem 043100867 Gastroesophageal reflux disease without esophagitis (K21.9) Active confirmed Problem 684937651126529 Preprocedural examination (Z01.818) Active confirmed Problem 020526381 Hx of adenomatou s colonic polyps (Z86.010) Active confirmed Problem Diverticulosis o f colon (K57.30) Active confirmed Plan Of Treatment Future Test Test Name Order Date COLONOSCOPY 12/30/2014 COLONOSCOPY 07/25/2021 Insurance Providers Payer Name Payer Address Payer Phone Subscriber Number Group Number Insured Name Patient Relationship to Insured Coverage Start Date Coverage End Date [facility] [address] [place], [place] [id number] ARACELIS BOLANOS Self - patient is the insured Medical (General) History Medical History History ICD Code Denies DM,Lung disease,renal disease [place] 2018 with 3V CABG --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 Carla bee--no esophagitis, no Solomon's, Neg H.pylori, normal duodenal biopsies Surgical History Surgery Date(Month/Year) Vasectomy 3V-CABG 2018 Left hip replacment 06/2020 Left inguinal hernia in 2018 Left knee
[2025-03-29 07:49] LABS: Cholesterol 120 mg/dL (<200); HDL Cholesterol 60 mg/dL (>40); Triglycerides 98 mg/dL (<150)
== END 2025-03-29 06:02 | disposition home or self-care (01) ==
LOC: HO.LAB 06:01
PROVIDERS: PCP Family Medicine; Visit Provider Nurse Practitioner
DX: I25.10 Atherosclerotic heart disease of native coronary artery without angina pectoris (principal); E78.5 Hyperlipidemia, unspecified
CPT/HCPCS: 36415; 80061

== ENCOUNTER 2025-03-31 14:32 | Outpatient (AMB) | payer BC, SELFPAY ==
--- OUTSIDE RECORDS SUMMARY | 2025-03-31 14:41 | XMS_ITS | Clinical Summary ---
Author Organization [facility] [employer] [facility] Address [address] [facility] [place] [address] Phone Care Team Providers Care Car Rental Clerk Name Role Phone Alexei Miranda MD Primary [...] pen injector injectionIndica tions:Coronary artery disease involving [place] coronary artery of [place] heart without angina pectoris,Dyslip idemia INJECT 1 ML (140 MG TOTAL) UNDER THE SKIN EVERY 14 DAYS. 6 Pen 1 5 Active evolocumab (Repatha SureClick) 140 mg/mL pen injector injectionIndica tions:Coronary artery disease involving [place] coronary artery of [place] heart without angina pectoris,Dyslip idemia Inject 1 [...] continue to monitor his treatment. Atrial fibrillation ([facility] V24, CMS/HCC V28) 1 10/03/2020 Overview (11/04/2024): Last Assessment & Plan: Patient has history of atrial fibrillation postoperatively. 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 He continues on anticoagulation due to elevated [id number] score. He denies any bleeding or excessive bruising. He will continue on 5 mg twice daily as prescribed. Assessment & Plan (12/08/2024 3:11 PM EDT): Patient has history of atrial fibrillation postoperatively. 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 He continues on anticoagulation due to elevated [id number] score. He denies any bleeding or excessive [...] Description 05/20/2025 9:20 AM EDT Office Visit [facility] [address] [place] [address] Charlie Gaona MD [address] [place] [address] [address] [place], [place] [phone] Health Maintenance Due Date Last Done Comments [...] patient's age to complete this topic Insurance [facility] Care Teams Car Rental Clerk Relationship Specialty Start Date End Date Alexei Miranda MD [address] [place] [address] Dr Rosalba [place] PCP - General 08/02/19
--- OUTSIDE RECORDS SUMMARY | 2025-03-31 14:41 | XMS_ITS | Data Portability ---
Author Organization [place] - [facility], OFFICE Address [address], [facility] [address] [place] [address] Assessment Encounter Date Assessment Date Assessment LastModified by Organization Details LastModified Time 10/13/2019 10/13/2019 We discussed the options related to his treatment. Mr. Baum has advanced OA with complete loss of the cartilage space interval, asphericity, subchondral sclerosis and cyst formation. Left total hip arthroplasty is clearly the most reasonable treatment alternative at whatever point his sample processor feels that it is reasonable which may [...] x 3 completed Yair Godoy MD [address] [facility] [address], [place], [address], [place] - [facility] 10/13/2019 18:00:02 total replacement of left hip joint completed Yair Godoy MD [address], [place], [address], [place] - [facility]Ass[facility]d [facility] 08/21/2020 [...] Updated DateTime 10/13/2019 170.18 cm 27.4 kg/m2 29908.66 g 115/80 mm[Hg] Hina Maxwell [place] - [facility] 10/13/2019 12:29:45 Social History Question Answer Notes LastModified by Organizat ion Details LastModified Time Tobacco Smoking Status Never Smoker Hina Maxwell null, [place] - [facility] 10/13/2019 12:29:32 What Was The Date Of Your Most Recent Tobacco Screening? 10/13/2019 [email or web address] Information not available 10/13/2019 How Much Tobacco Do You Smoke? No Information not available 10/13/2019 How Many Years Have You Smoked Tobacco? 0 [email or web address] Information not available 10/13/2019 Sex: Unknown Functional Status Question Answer Note LastModified by Organizat ion Details LastModified Time Do you or have you ever used smokeless tobacco? Never used smokeless tobacco [email or web address] Information not available 10/13/2019 Do you or have you ever used e-cigarettes or vape? Never used electronic cigarettes [email or web address] Information not available 10/13/2019 Mental Status None [...] SNOMED-CT Code Diagnosis ICD10 Code Diagnosis Note [id number] Yair Godoy MD OFFICE [address], [address] [place] [address] 10/13/2019 11:38:42 10/18/2019 20:32:37 [id number] Yair Godoy MD [facility] [address] [place] [address] 08/21/2020 12:17:40 08/21/2020 18:29:28 Health Concerns Section Related Observation LastModified by Organization Detai ls LastModified Time None Recorded Concern Status LastModified by Organization Details LastModified Time None Recorded Advance Directives Directive None Recorded Payers Insurance Date Sequence Insurance Name Policy Number Policy Leone Covered Member ID Leone Member ID Guarantor Name 08/21/2020 1 [place] [id number] Julio Cesar Jaramillo [id number] Julio Cesar Jaramillo Notes Date Note [...] Godoy MD [address], [place], [address], [place] - [facility]Ass[facility]d [facility] 10/13/2019 [...] scan Previous PT:helped significantly Yair Godoy MD [address] [place] [address],[place] [address], [place], [address], [place] - [facility] 08/21/2020 18:03:07
--- OUTSIDE RECORDS SUMMARY | 2025-03-31 14:41 | XMS_ITS | Patient Health Record ---
Author Organization [facility] Address [address] [place] [address] Care Team Providers Care Doctor Of Osteopathy Name Role Phone Alexei Miranda Primary Care Provider Unavailab Kenneth Munoz Unavailable [phone] Allergies No Known Allergies Reason For Referral [...] Problem Status W/U Status Risk Notes Problem 689045701 Encounter for screening for malignant neoplasm of colon (Z12.11) Active confirmed Problem History of polyp of colon (situation) (274385999) Personal history of colonic polyps (Z86.010) Active confirmed Problem 818000417 Gastroesophageal reflux disease without esophagitis (K21.9) Active confirmed Problem 500117492732322 Preprocedural examination (Z01.818) Active confirmed Problem 769128420 Hx of adenomatou s colonic polyps (Z86.010) Active confirmed Problem Diverticulosis of colon (280211744) Diverticulosis of colon (K57.30) Active confirmed Plan Of Treatment Future Test Test Name Order Date COLONOSCOPY 12/30/2014 COLONOSCOPY 07/25/2021 Insurance Providers Payer Name Payer Address Payer Phone Subscriber Number Group Number Insured Name Patient Relationship to Insured Coverage Start Date Coverage End Date [facility] [address] [place], [place] [id number] [phone] [id number] ARACELIS BOLANOS Self - patient is the insured Medical (General) History Medical History History ICD Code Denies DM,Lung disease,renal disease [place] 2018 with 3V CABG --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 Carla bee--no esophagitis, no Solomon's, Neg H.pylori, normal duodenal biopsies Surgical History Surgery Date(Month/Year) Vasectomy 3V-CABG 2018 Left hip replacment 06/2020 Left inguinal hernia in 2018 Left knee
--- OUTSIDE RECORDS SUMMARY | 2025-03-31 14:41 | XMS_ITS | Patient Health Record ---
Author Organization [facility] Address [address] [facility] [place] [address] Care Team Providers Care Dust Collector Treater Name Role Phone Alexei Miranda MD Primary Care Provider Fatou Petit Unavailable [phone] Allergies No Known Allergies Reason For Referral No Information Medications Medication SIG (Take, Route, Frequency, Duration) Notes Start Date End Date Status Ezetimibe 10 MG 1 tablet Orally Once a day Active Rosuvastatin Calcium 40 MG 1 tablet Oral ly Once a day Active Aspirin 81 Active Metoprolol Succinate 25 MG 1 capsule Ora lly Once a day Active Eliquis 5 MG as directed Orally Active Immunizations Vaccine Route Administration Date Status Comme nts Influenza Unknown 06/22/2024 Administered Social History Tobacco Use: Social History Observation Description Date Details (start date - stop date) Never Smoker NA - NA Tobacco use other than smoking: Question Answer Notes Are you an other tobacco user? No Tobacco Control (Standard) Question Answer Notes Tobacco use: Nonsmoker AUDIT-C (Standard) Question Answer Notes Did you have a drink contain ing alcohol in the past year? Yes How often did you have a dri nk containing alcohol in the past year? Monthly or less (1 point) How many drinks did you have on a typical day when you were drinking in the past year? 1 or 2 drinks (0 point) How often did you have six o r more drinks on one occasion in the past year? Less than monthly (1 point) Points 2 Interpretation Negative Problems Problem Type SNOMED Code ICD Code Onset Dates Problem Status W/U Status Risk Notes Problem Plantar fasciitis (M72.2) Active confirmed Resistant to previous conservative treatment Problem Plantar fasciitis of right foot (28399558452715 101) Plantar fasciitis of right foot (M72.2) Active confirmed Problem Interstitial myositis (67179604) Interstitial myositis of right foot (M60.171) Active confirmed Vital Signs Blood pressure diastolic 65 mm Hg 02/28/2025 Height 5ft 7inch in 02/28/2025 Blood pressure systolic 128 mm Hg 02/28/2025 Weight 194 lbs 02/28/2025 BMI 30.38 kg/m2 02/28/2025 Procedures Procedure Date Ordered Date Performed Result Body Sit e 29172,[id number] TENDON SHEATH/LIGAMENT 02/28/2025 N/A Encounters Encounter Location Date Provider Diagnosis [address] [address] 01/17/2025 Fatou Javed Pain in right foot M79.671 ; Plantar fasciitis of right foot M72.2 ; Calcaneal spur, right foot M77.31 ; Interstitial myositis of right foot M60.171 ; Bursitis of right foot M77.51 ; Pain in left foot M79.672 ; Pain in left ankle and joints of left foot M25.572 ; Bursitis of left foot M77.52 and Tailor's bunion of left foot M21.[address] [facility] [address] 02/28/2025 Fatou Javed Plantar fasciitis M72.[address] [address] 01/17/2025 Fatou Javed Assessments Encounter Date Diagnosis (ICD Code) Assessment Notes Treatment Notes Treatment Clinical Notes Section Notes 01/17/2025 Pain in right foot (ICD-10 - M79.671) 02/28/2025 Plantar fasciitis (ICD-10 - M72.2) Resistant to previous conservative treatment Patient Educated with: RICE THERAPY.pdf (RICE THERAPY.pdf) Patient Educated with: INJECTIONTHER APY.pdf (INJECTIONTHE RAPY.pdf) 01/17/2025 Plantar fasciitis of right foot (ICD-10 - M72.2) Patient Educated with: HEEL CORD STRETCHES.pdf (HEEL CORD STRETCHES.pdf ) Patient Educated with: RICE THERAPY.pdf (RICE THERAPY.pdf) 01/17/2025 Calcaneal spur, right foot (ICD-10 - M77.31) 01/17/2025 Interstitial myositis of right foot (ICD-10 - M60.171) 01/17/2025 Bursitis of right foot (ICD-10 - M77.51) 01/17/2025 Pain in left ankle and joints of left foot (ICD-10 - M25.572) 01/17/2025 Pain in left foot (ICD-10 - M79.672) 01/17/2025 Bursitis of left foot (ICD-10 - M77.52) 01/17/2025 Tailor's bunion of left foot (ICD-10 - M21.622) Plan Of Treatment Pending Test Test Name Order Date X ray : Foot, left 3V 01/17/2025 X ray : Foot, right 3V 01/17/2025 [id number] TENDON SHEATH/LIGAMENT 0 02/28/2025 Insurance Providers Payer Name Payer Address Payer Phone Subscriber Number Group Number Insured Name Patient Relationship to Insured Coverage Start Date Coverage End Date [facility] [address] [place] [address] [id number] Julio Cesar Jaramillo Self - patient is the insured Medical (General) History Medical History History ICD Code CAD (Cholesterol) Heart disease Stroke Joint implants/screws Surgical History Surgery Date(Month/Year) hernia 09/2017 heart surgery unspecified 05/2019 hip replacement 06/2020
--- NOTE | 2025-03-31 14:45 | MHC.PC.OV ---
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 Labs drawn 03/29/25. Reviewed labs with pt. Triglycerides 98. TC 120. LDL 41. HDL 60. He is on rosuvastatin 40mg and zetia 10mg daily. Blood pressure today 100/66, 55p. He is on metoprolol 25mg b.i.d. HPI Comments History of Present Illness Details Documentation assistance for Alexei Miranda MD, was provided by Bennie Abernathy, Assembler Adjuster on 03/31/2025 at 3:14 PM EST. I, Dr. Miranda, have read, observed, and verified documentation. [facility] Medical History (Reviewed 12/31/23 @ 14:34 by Janice Davis [facility]) Elevated cholesterol COVID-19 vaccine series completed GERD (gastroesophageal reflux disease) CVA (cerebral vascular accident) On beta nettie at home On anticoagulant therapy Myocardial infarction CAD (coronary artery disease) HTN (hypertension) Surgical History (Reviewed 10/01/23 @ 14:39 by Janice Davis [facility]) History of esophagogastroduodenoscopy (EGD) Hx of arthroscopy of left knee Hx of colonoscopy Hx of inguinal hernia repair History of hip surgery S/P triple vessel bypass Family History (Reviewed 10/01/23 @ 14:39 by Janice Davis [facility]) Father CAD (coronary artery disease) Brother No problems noted. Brother No problems noted. Sister No problems noted. Sister No problems noted. Son No problems noted. Daughter No problems noted. Social History (Updated 04/29/24 @ 16:28 by [facility] Household Members: Spouse Housing: House Are you a primary palliative care nurse to a significant other at home: No Do you presently have visiting nurse or other home services: No Alcohol intake: current Alcohol intake frequency: holidays/special occasions only Patient Tobacco Use Status: Never used Tobacco e-Cigarette/Vaping Use: Never Used service: No Current occupational status: employed Current occupation: [employer] Cognitive needs: No Hearing needs: No Vision needs: No Questionnaire Thrive Questionnaire Date Thrive assessed: 10/29/24 I am a: Patient What is your living situation today?: I have a steady place to live Within the past 12 months, did the food you bought not last and you didn't have the money to get more?: Never true Within the past 12 months, did you worry whether your food would run out before you got money to buy more?: Never true Do you have trouble paying for medicines?: No Do you have trouble getting transportation to medical appointments?: No Do you have trouble paying your heating and electricity bill?: No Do you have trouble taking care of your child, family member or friend?: No Do you have trouble with day-to-day activities such as bathing, preparing meals, shopping, managing finances, etc.?: No Are you currently unemployed and looking for a job?: No Are you interested in more education?: No Please select the resources that you would like help with: None Currently or been in a relationship where the following occur: No concerns reported THRIVE Score: 0 CRISTHIAN-7 AMB Questionnaire CRISTHIAN-7 Date CRISTHIAN - 7 assessed: 04/29/24 Source: Developed by Drs. Kenneth Jeffrey, Tequila Renee, Blas Branch and colleagues, with an educational aicha from [employer]. Review of Systems Const Denies chills, Denies fatigue, Denies fever(s), Denies headache(s) and Denies weakness ENT Denies dizziness and Denies headache(s) Card Denies dyspnea Resp Denies cough, Denies dyspnea, Denies wheezing and Denies other (shortness of breath) Musc Denies numbness and Denies tingling Neuro Denies dizziness, Denies headache(s), Denies numbness, Denies tingling and Denies weakness Psych Denies anxiety and Denies depression Endo Denies fatigue Aller/Immun Denies wheezing Physical exam (Primary Care) Vital Signs: Last Vital Signs Temp 98.1 F 03/31/25 14:56 Pulse 55 03/31/25 14:56 Resp 16 03/31/25 14:56 BP 100/66 03/31/25 14:56 Pulse Ox 95 03/31/25 14:56 Oxygen Delivery Method Room Air 03/31/25 14:56 BMI result Body Mass Index 30.3 Tobacco/Smoking Status: Tobacco use Status Tobacco use date assessed 04/29/24 03/31/25 14:46 Patient Tobacco Use Status Never used Tobacco 03/31/25 14:46 e-Cigarette/Vaping Use Never Used 03/31/25 14:46 Thrive Assessment: Date of Thrive Assessment Date Thrive assessed 10/29/24 03/31/25 14:46 Currently or been in a relationship where the following occur: No concerns reported Const General: well developed; No acute distress Nutritional Appearance: well nourished Orientation/consciousness: patient oriented x3 HENMT Head: Yes normocephalic and Yes atraumatic Eyes General: appearance normal, both eyes and all related structures Pupils: Equal, round and reactive pupils present EOM: EOMs intact bilaterally Resp Effort & Inspection: normal respiratory effort Auscultation: clear to auscultation bilaterally Cardio Rate: regular rate Rhythm: regular rhythm Heart sounds: S1 normal heart sound present, S2 normal heart sound present, no gallops, no murmurs and no rubs Neuro General: patient oriented x3 and gait normal Cranial nerves: Yes Equal, round and reactive pupils present Psych Affect: normal affect Coding Level of Care Code Est Pt Level 4 (11340) Diagnoses Essential hypertension I10 CAD (coronary artery disease) I25.10 Hyperlipidemia E78.5 Assessment & Plan Assessment & Plan (1) Essential hypertension: Code(s): I10 - Essential (primary) hypertension Category: Medical Plan: Blood pressure is controlled. Goal is less than 130/80 Tolerating medications well with no dizziness weakness or fatigue Continue current medications (2) CAD (coronary artery disease): Comment: Sees Dr. Andrea Flor [facility] [place] Card- #[id number] Code(s): I25.10 - Atherosclerotic heart disease of [place] coronary artery without angina pectoris Category: Medical Plan: LDL cholesterol now at goal of less than 70 after starting Repatha He will be seeing a new or manager in April. (3) Hyperlipidemia: Code(s): E78.5 - Hyperlipidemia, unspecified Category: Medical Plan: As above, LDL cholesterol no at goal Patient is taking Repatha He is uncertain if he is also taking rosuvastatin and Zetia He will discuss these with his new or manager. We can follow-up on what he is taking at his next visit
[2025-03-31 14:56] VITALS: BP 100/66; PULSE 55; RESP 16; TEMP 36.7; O2SAT 95; BMI 30.3
== END 2025-03-31 15:24 | disposition home or self-care (01) ==
LOC: HO.HMCFM 14:33
PROVIDERS: PCP Family Medicine; Visit Provider Family Medicine
DX: I10 Essential (primary) hypertension (principal); I25.10 Atherosclerotic heart disease of native coronary artery without angina pectoris; E78.5 Hyperlipidemia, unspecified